=== PATIENT | female | born 1950 | race Caucasian/White ===

== ENCOUNTER 2021-06-07 12:51 | Emergency (ER) | payer MEDICARE, SELFPAY ==
[2021-06-07 12:56] VITALS: BP 166/116; PULSE 119; RESP 18; TEMP 36.4; O2SAT 96; BMI 26.1
[2021-06-07 13:35] VITALS: BP 161/116; PULSE 124; RESP 21; O2SAT 96
--- NOTE | 2021-06-07 13:35 | ECG_ITS ---
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
--- NOTE | 2021-06-07 13:35 | XR_ITS ---
WS: [id number] PORTABLE CHEST HISTORY: Irregular heartbeat. COMPARISON: None available. Mildly hyperinflated lungs. Costophrenic angles are not completely included. No pneumonia. Normal vas culature. No pleural effusion or pneumothorax. Cardiac size: Normal. Mediastinum/Aorta: Normal mediastinum. No osseous abnormality seen. XR/XR chest 1V portable [id number] IMPRESSION: Mild hyperexpansion. No pneumonia.
[2021-06-07 14:06] LABS: Basophils % 0.6 %; Eosinophils # 0.1 10^3/uL (0.0-0.8); Hematocrit 48.5 % (37.0-47.0); Hemoglobin 15.8 g/dL (11.5-15.3); Lymphocytes # 2.2 10^3/uL (0.8-4.8); Lymphocytes % 44.4 %; Mean Corpuscular HGB Conc 32.6 g/dL (30.0-36.0); Mean Corpuscular Hemoglobin 28.4 pg (28.0-34.0); Mean Corpuscular Volume 87.2 fl (81-99); Mean Platelet Volume 8.8 fL (7.4-10.4); Monocytes # 0.5 10^3/uL (0.2-0.9); Monocytes % 9.7 %; Neutrophils # 2.19 10^3/uL (1.8-7.7); Neutrophils % 44.1 %; Nucleated Red Blood Cells % 0 %; Platelet Count 318 10^3/cmm (130-400); Red Blood Count 5.56 10^6/uL (4.1-5.3); Red Cell Distribution Width 12.7 % (12.1-15.1)
[2021-06-07 14:08] VITALS: BP 160/118; PULSE 105; RESP 21; O2SAT 97
--- NOTE | 2021-06-07 14:12 | W.ED.ARRPALP ---
HPI - Arrhythmia/Palpitations General: Chief Complaint: Arrhythmia/Palpitations Stated Complaint: PT States thinks its AFIB Time Seen by Provider: 06/07/21 13:43 Source: patient Mode of arrival: ambulatory History of Present Illness: 71-year-old female presents emergency room complaining of irregular heart rate palpitations lightheadedness and dizziness with any activity for the last week. Patient initially presented to the triage area and was found to be in a flutter with a rate in the 130s. There is a very high volumes today we had to make a room for her once we had and got her to the room she was still in a flutter when initially examined her but shortly after she converted on her own back into a sinus tachycardia. She not having any chest pain she is feeling overall a bit better at this point. She not had any chest discomfort with any of these episodes that have been sustained the last several days. MD complaint: rapid heart beat, heart racing and palpitations Duration: constant Severity: mild Arrhythmia history: atrial fibrillation Associated symptoms: Deny nausea or vomiting Review of Systems Const: Denies: fever(s), chills, body aches, change in appetite, fatigue or malaise ENMT: Denies: throat pain, ear or mastoid pain, nasal discharge or nasal congestion Card: Denies: chest pain, edema, dyspnea on exertion or orthopnea Resp: Denies: dyspnea, productive cough or non-productive cough GI: Denies: abdominal pain, nausea, vomiting, hematemesis, coffee ground emesis, diarrhea, constipation, bloating, hematochezia or melena : Denies: flank pain, difficulty voiding, dysuria, urinary frequency or urinary urgency Skin/Breast: Denies: rash or pruritus PFSH ED PFSH: Surgical History (Updated 06/12/21 @ 12:50 by Juan M Rabago DO) S/P left knee arthroscopy Social History (Updated 06/12/21 @ 12:51 by Juan M Rabago DO) Smoking and tobacco status: never smoked Alcohol intake: never Physical Exam Const: COMMON NORMALS: no acute distress GENERAL APPEARANCE: cooperative and comfortable ORIENTATION/CONSCIOUSNESS: Yes awake, Yes oriented to person, Yes oriented to place and Yes oriented to time HENMT: COMMON NORMALS: normocephalic, atraumatic and hearing grossly normal bilaterally HEAD & SCALP: normocephalic and atraumatic Neck/C-Spine: COMMON NORMALS: no JVD Resp: COMMON NORMALS: normal respiratory effort, No retractions, No use of accessory muscles and clear to auscultation bilaterally AUSCULTATION: clear to auscultation bilaterally Cardio: COMMON NORMALS: no JVD and No murmurs present (Cardio) RATE: tachycardic RHYTHM: abnormal rhythm irregularly irregular GI: COMMON NORMALS: Soft to palpation and No hepatosplenomegaly present AUSCULTATION: Yes normoactive bowel sounds PALPATION: Yes Soft to palpation, No Tenderness to palpation present (GI), No Guarding due to palpation present (GI) and Yes No hepatosplenomegaly present Extremity: COMMON NORMALS: normal to inspection, capillary refill normal, no clubbing, cyanosis or edema, no calf tenderness and no pedal edema Neuro: SENSORIUM/ORIENTATION: Yes oriented to person, Yes oriented to place and Yes oriented to time Skin: COMMON NORMALS: no rashes or lesions noted GENERAL SKIN EXAM: no rashes or lesions noted Course Vital Signs: Vital signs: Vital Signs Temperature 97.5 F L 06/07/21 12:56 Pulse Rate 67 06/07/21 17:28 Respiratory Rate 15 06/07/21 17:28 Blood Pressure 167/111 06/07/21 17:28 Pulse Oximetry 96 06/07/21 17:28 MDM - Arrhythmia/Palpitations Medical Decision Making Patient was given metoprolol and hydralazine blood pressure is improved. We will go ahead and discharge her home on metoprolol called and talked to cardiology on-call. They recommend starting Eliquis. Patient is in a normal sinus rhythm at this time she has had this intermittently it sounds like for some time we will go ahead and discharge home on Toprol and Eliquis have her follow-up with cardiologywithin the next week. Lab Data : 06/07/21 13:56 06/07/21 13:56 Radiology Impressions Chest X-Ray 06/07/21 13:35 IMPRESSION: Mild hyperexpansion. No pneumonia. Laboratory Results WBC 5.0 10^3/uL (4.0-10.0) 06/07/21 13:56 RBC 5.56 10^6/uL (4.1-5.3) H 06/07/21 13:56 Hgb 15.8 g/dL (11.5-15.3) H 06/07/21 13:56 Hct 48.5 % (37.0-47.0) H 06/07/21 13:56 MCV 87.2 fl (81-99) 06/07/21 13:56 MCH 28.4 pg (28.0-34.0) 06/07/21 13:56 MCHC 32.6 g/dL (30.0-36.0) 06/07/21 13:56 RDW 12.7 % (12.1-15.1) 06/07/21 13:56 Plt Count 318 10^3/cmm (130-400) 06/07/21 13:56 MPV 8.8 fL (7.4-10.4) 06/07/21 13:56 Neut % (Auto) 44.1 % 06/07/21 13:56 Lymph % (Auto) 44.4 % 06/07/21 13:56 Merrick % (Auto) 9.7 % 06/07/21 13:56 Eos % (Auto) 1.0 % 06/07/21 13:56 Baso % (Auto) 0.6 % 06/07/21 13:56 Neut # (Auto) 2.19 10^3/uL (1.8-7.7) 06/07/21 13:56 Lymph # (Auto) 2.2 10^3/uL (0.8-4.8) 06/07/21 13:56 Merrick # (Auto) 0.5 10^3/uL (0.2-0.9) 06/07/21 13:56 Eos # (Auto) 0.1 10^3/uL (0.0-0.8) 06/07/21 13:56 Baso # (Auto) 0.0 10^3/uL (0.0-0.1) 06/07/21 13:56 Nucleated RBC % (auto) 0 % 06/07/21 13:56 Nucleated RBCs # 0.0 /100WBC 06/07/21 13:56 Sodium 138 mmol/L (136-145) 06/07/21 13:56 Potassium 4.2 mmol/L (3.5-5.1) 06/07/21 13:56 Chloride 99 mmol/L (98-107) 06/07/21 13:56 Carbon Dioxide 25 mmol/L (22-29) 06/07/21 13:56 Anion Gap 18.2 (5-19) 06/07/21 13:56 BUN 12 mg/dL (8-23) 06/07/21 13:56 Creatinine 0.7 mg/dL (0.5-0.9) 06/07/21 13:56 GFR Calculation 83.0 mL/min (90-130) L 06/07/21 13:56 Glucose 101 mg/dL (65-115) 06/07/21 13:56 Calculated Osmolality 286 mOsm/kg (285-295) 06/07/21 13:56 Calcium 10.6 mg/dL (8.5-10.5) H 06/07/21 13:56 Magnesium 2.4 mg/dL (1.7-2.3) H 06/07/21 13:56 Total Bilirubin 0.4 mg/dL (0.15-1.2) 06/07/21 13:56 AST 16 U/L (0-32) 06/07/21 13:56 ALT 15 U/L (0-33) 06/07/21 13:56 Alkaline Phosphatase 78 IU/L (35-105) 06/07/21 13:56 NT-Pro-B Natriuret Pep 51 pg/mL (0-125) 06/07/21 13:56 Total Protein 8.2 g/dL (6.6-8.7) 06/07/21 13:56 Albumin 5.1 g/dL (3.5-5.2) 06/07/21 13:56 Globulin 3.1 g/dL (1.3-4.6) 06/07/21 13:56 Discharge Plan Discharge Patient Disposition: Home Clinical Impression: Atrial fib/flutter, transient Condition: Stable Prescriptions: New Toprol XL 25 mg tablet extended release 24 hr 25 mg PO DAILY Qty: 30 0RF Eliquis 5 mg tablet 5 mg PO BID Qty: 60 0RF No Action Tylenol Ex Str Rapid Release 500 mg Tablet 500 mg PO BEDTIME PRN (Reason: Pain) 0RF Fiber (calcium polycarbophil) 625 mg Tablet 1,250 mg PO QPM 0RF Colace 100 mg Capsule 100 mg PO QPM 0RF Discharge Orders: Discharge ED (Routine); Ordered 06/07/21 Ordered By: Juan M Rabago Referrals: Hermes Cortes DO [Primary Care Provider] - Discharge Diet: Usual diet Discharge Activity: Limit activity as instructed Patient Instructions: Opioid Safety Activity Restrictions/Additional Instructions: This measures will call to make arrangements for you to have an echocardiogram and follow-up with cardiology. Coding Level of Care Code ED Bakery Demonstrator for Chg Fwd Exam Comprehensive
[2021-06-07] MEDS: metoprolol tartrate 50 mg Tablet PO (14:18)
[2021-06-07 14:39] LABS: Alanine Aminotransferase 15 U/L (0-33); Albumin Level 5.1 g/dL (3.5-5.2); Alkaline Phosphatase 78 IU/L (35-105); Anion Gap 18.2 (5-19); Aspartate Amino Transferase 16 U/L (0-32); Blood Urea Nitrogen 12 mg/dL (8-23); Calcium 10.6 mg/dL (8.5-10.5); Carbon Dioxide 25 mmol/L (22-29); Chloride 99 mmol/L (98-107); Creatinine Clr Calc Pharmacy 68.0748; Globulin 3.1 g/dL (1.3-4.6); Glucose 101 mg/dL (65-115); Magnesium 2.4 mg/dL (1.7-2.3); NT Pro B Type Natriuretic Pept 51 pg/mL (0-125); Osmolality Calculated 286 mOsm/kg (285-295); Potassium 4.2 mmol/L (3.5-5.1); Sodium 138 mmol/L (136-145); Total Bilirubin 0.4 mg/dL (0.15-1.2); Total Protein 8.2 g/dL (6.6-8.7)
[2021-06-07 15:30] VITALS: BP 158/111; PULSE 71; RESP 20; O2SAT 97
[2021-06-07 16:06] VITALS: BP 167/111; PULSE 67; RESP 15; O2SAT 96
[2021-06-07] MEDS: hyDRALAzine 20 mg/mL INJ 1 mL 10 MG IVP (16:22)
[2021-06-07 17:28] VITALS: BP 167/111; PULSE 67; RESP 15; O2SAT 96
--- NOTE | 2021-06-13 13:00 | DCPLANNER ---
Addendum entered by Kimberlee Gonzalez 08/21/21 21:02: Patient had a follow up appointment scheduled for 07.04.21 with [facility] - patient did attend appointment. Patient had a follow up appointment scheduled for 08.09.21 for an echo - patient did attend appointment. Addendum entered by Kimberlee Gonzalez 07/27/21 07:44: Patient has an echo scheduled for July at 11:00. centralized scheduling will call patient with appointment information. Addendum entered by Kimberlee Gonzalez 06/21/21 19:07: account manager relief received conformation that centralized scheduling did receive order for patient. No appointment scheduled at this time. Original Note: account manager relief had message to schedule a follow up appointment for patient with [facility]. account manager relief called [facility], spoke with Sharon, gave clinic patients information. A follow up appointment was scheduled for Sunday, July 04, 2021 at 3:[address] Mtz. account manager relief called phone number [phone], unable to speak with patient at this time, a voicemail was left for patient with appointment information.
== END 2021-06-07 17:20 | disposition home or self-care (01) ==
PROVIDERS: Emergency Medicine; Emergency Provider Family Medicine; PCP Internal Medicine
DX: I48.91 Unspecified atrial fibrillation (principal); I48.92 Unspecified atrial flutter
CPT/HCPCS: 71045; 80053; 83735; 83880; 85025; 93005; 96374; 99284; J0360

== ENCOUNTER → 2021-07-04 14:42 | Outpatient (BNVA) | payer MEDICARE, SELFPAY | PROVIDERS: PCP Internal Medicine; Visit Provider Internal Medicine Cardiovascular Disease | DX: R07.9 Chest pain, unspecified (principal); R06.02 Shortness of breath; R00.2 Palpitations; I10 Essential (primary) hypertension; M19.90 Unspecified osteoarthritis, unspecified site; R06.00 Dyspnea, unspecified | CPT/HCPCS: 99204; 99205 ==

== ENCOUNTER 2021-07-20 06:43 | Outpatient (CLI) | payer MEDICARE, SELFPAY ==
[2021-07-20 07:17] VITALS: BMI 26.6
--- NOTE | 2021-07-20 07:20 | ECG_ITS ---
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 Interpretive Statements NAME OF STUDY: EXERCISE SESTAMIBI STRESS TEST INDICATION: Paroxysmal atrial fibrillation Baseline blood pressure of 165/113 mm Hg, heart rate 88 beats per minute and oxygen saturation of 98%. EKG showed normal sinus rhythm, normal axis with isolated PVC with poor anterior R wave progression. Nonspecific ST depression. The patient exercised for 5 minutes 35 seconds on a standard Tye protocol. Patient attained a maximum heart rate of 166 beats per minute(109% of the maximum predicted heart rate) with a blood pressure during exercise increased to 174/124 at the peak exercise of 150/111 mm Hg and oxygen saturation 98%. The EKG at peak exercise revealed sinus tachycardia with no significant ST-T wave changes. Patient did not have any chest pain or any significant arrhythmis with the exercise. The study was terminated due to maximal fatigue. During the recovery phase, there were no new changes. Isolated PVCs noted in recovery. Blood pressure increased to 177/118 early in recovery and at the end of the recovery phase was 164/107 mm Hg with a heart rate of 102 beats per minute and oxygen saturation of 97%. CONCLUSION: 1. Normal EKG response to treadmill exercise. 2. No exercise-induced chest pain or cardiac arrhythmia. 3. Good exercise tolerance, attained a maximum of 7 METs. Maximum VO2 of 24.5 mL/kg/min. 4. Baseline hypertension with normal response to exercise. 5. Perfusion scan will be documented separately. Electronically Signed On 07-21-2021 13:23:12 CDT by Mariama Mtz M.D. [id number]
--- NOTE | 2021-07-20 07:20 | NMCV_ITS ---
NM diego perf SPECT r/s* [id number] Lily Díaz Age: 71 Gender: F : 1950 Exam Date: 07/20/2021 07:20 Ordering Phys: Hermes Cortes DO Technologist: KRISTIAN Mcbride Exam Location: [facility] Indications: PAROXYSMAL ARTERIAL FIBRILLATION STRESS TEST Please see separate stress test report in [facility] for full findings IMAGE PROTOCOL Rest/Stress 1 Exercise Day Radiopharmaceutical Dose (mCi) Administration Site Administered by Rest: Tc-99m 10.9 IV KRISTIAN Gaines Sestamibi Stress:Tc-99m 32.6 IV KRISTIAN Gaines Sestamibi Rest: 20-Jul-2021 60 Discovery 630 Stress: 20-Jul-2021 15 Discovery 630 Radiopharmaceutical was injected at 100 % maximum heart rate. Images obtained in supine and prone position. SPECT RESULTS Technical Quality: Excellent Raw Data Analysis: Normal Image Corrections: No attenuation or motion correction applied Summed Stress Score: 0 Summed Rest Score: 0 Summed Difference Score: 0 PERFUSION FINDINGS SPECT images demonstrate homogeneous tracer distribution throughout the myocardium. FUNCTIONAL RESULTS (calculated via Gated SPECT) Stress Image LV EF (%): 85 Stress EDV (mL):48 TID: 0.67 Stress ESV (mL):7 FUNCTIONAL FINDINGS: The left ventricle is normal in size. Transient Ischemia Dilatation of 0.67. There is normal left ventricular systolic function. The left ventricular ejection fraction is normal with a value of 85%. There is hyperdynamic left ventricular wall thickening with no regional wall motion abnormality. IMPRESSIONS 1. Myocardial perfusion imaging is normal. 2. Overall left ventricular systolic function is normal without regional wall motion abnormalities, LVEF=85%. 3. Patient exercised for 5 minutes 35 seconds and reached 7 METs. Normal EKG response to exercise. Refer to separate report for details. 4. Scan indicates low risk for cardiac events. Mariama Mtz MD (Electronically Signed) Final Date: 21 July 2021 13:24 S
[2021-07-20 09:09] VITALS: BP 164/107; PULSE 99
== END 2021-07-20 06:44 | disposition home or self-care (01) ==
LOC: CDL 06:44
PROVIDERS: PCP Internal Medicine; Visit Provider Internal Medicine
DX: I48.0 Paroxysmal atrial fibrillation (principal); I10 Essential (primary) hypertension
CPT/HCPCS: 78452; 93017; A9500

== ENCOUNTER 2021-08-09 10:45 | Outpatient (CLI) | payer MEDICARE, SELFPAY ==
--- NOTE | 2021-08-09 11:00 | USCV_ITS ---
Lily Díaz Age: 71 Gender: F : 1950 Exam Date: 08/09/2021 11:09 Ordering Phys: Mariama Mtz MD ([email or web address]) Technologist: [place] [facility] [place]: Atrial fibrillation BP: 126 / 88 HR: 70 Rhythm: Sinus Technical Quality: Good MEASUREMENTS (Male / Female) Normal Values 2D ECHO LV Diastolic Diameter PLAX 3.4 cm 4.2 - 5.9 / 3.9 - 5.3 cm LV Systolic Diameter PLAX 2.3 cm IVS Diastolic Thickness 1.1 cm 0.6 - 1.0 / 0.6 - 0.9 cm IVS Systolic Thickness 1.6 cm LVPW Diastolic Thickness 0.8 cm 0.6 - 1.0 / 0.6 - 0.9 cm LVPW Systolic Thickness 1.3 cm LVOT Diameter 2.0 cm LV Ejection Fraction 2D Teich 60.5 % LV Ejection Fraction MOD 2C 77.0 % LV Ejection Fraction 2C AL 78.5 % LA Diameter 3.1 cm Aorta at Sinotubular Diameter 2.5 cm M-MODE Aortic Annulus Diameter 3.2 cm LA Ao Ratio MM 1.0 MV E Point Septal Separation 0.9 cm DOPPLER AV Peak Velocity 129.0 cm/s LVOT Peak Velocity 99.0 cm/s AV Area Cont Eq vti 2.4 cm squared AV Area Cont Eq pk 2.4 cm squared MV Area PHT 5.0 cm squared Mitral E to A Ratio 1.3 MV E' Velocity 49.0 cm/s Mitral E to MV E' Ratio 7.8 Mitral E to LV E' Lateral Ratio 6.5 Mitral E to LV E' Septal Ratio 10.0 TR Peak Velocity 225.3 cm/s TR Peak Gradient 20.3 mmHg TV Peak E Velocity 108.0 cm/s Right Atrial Pressure 3.0 mmHg Pulmonary Artery Systolic Pressu 23.3 mmHg PV Peak Velocity 126.0 cm/s FINDINGS Left Ventricle Normal left ventricular size, systolic function and wall thickness, with no regional wall motion abnormalities. Left ventricular ejection fraction is estimated at 70 %. Normal diastolic function. Right Ventricle Normal right ventricular size and systolic function. RVSP could not be calculated due to incomplete tricuspid regurgitation velocity profile. Right Atrium Normal right atrial size. Left Atrium Normal left atrial size. Mitral Valve Structurally normal mitral valve. No mitral valve stenosis. Mild mitral valve regurgitation. Aortic Valve Structurally normal trileaflet aortic valve. No aortic valve stenosis. No aortic valve regurgitation. Tricuspid Valve Structurally normal tricuspid valve. No tricuspid valve stenosis. Trace to mild tricuspid valve regurgitation. Pulmonic Valve Structurally normal pulmonic valve. No pulmonary valve stenosis. Trace pulmonary valve regurgitation. Pericardium No pericardial effusion. Aorta Normal size aortic root and proximal ascending aorta. CONCLUSIONS 1. Normal left ventricular size, systolic function and wall thickness, with no regional wall motion abnormalities. Left ventricular ejection fraction is estimated at 70 %. Normal diastolic function. 2. Mild mitral valve regurgitation. 3. Trace to mild tricuspid valve regurgitation. 4. No prior similar studies to compare. Mariama Mtz MD (Electronically Signed) Final Date: 12 August 2021 17:54 S
== END 2021-08-09 10:46 | disposition home or self-care (01) ==
PROVIDERS: PCP Internal Medicine; Visit Provider Internal Medicine Cardiovascular Disease
DX: R06.02 Shortness of breath (principal); I48.91 Unspecified atrial fibrillation; I08.1 Rheumatic disorders of both mitral and tricuspid valves
CPT/HCPCS: 93306

== ENCOUNTER → 2021-10-10 13:49 | Outpatient (BNVA) | payer MEDICARE, SELFPAY | PROVIDERS: PCP Internal Medicine; Visit Provider Internal Medicine Cardiovascular Disease | DX: R07.9 Chest pain, unspecified (principal); R06.00 Dyspnea, unspecified; I10 Essential (primary) hypertension; M19.90 Unspecified osteoarthritis, unspecified site | CPT/HCPCS: 99213; 99214 ==

== ENCOUNTER 2022-04-16 12:36 | Outpatient (CLI) | payer MEDICARE, SELFPAY ==
--- NOTE | 2022-04-16 12:44 | MR_ITS ---
WS: [id number] MRI LUMBAR SPINE NONCONTRAST TECHNIQUE: Sagittal T1, T2 and STIR imaging. Axial T1 and T2 imaging. CLINICAL INFORMATION: LEFT LEG WEAKNESS COMPARISON: None. FINDINGS: Mild lumbar curve. No acute compression. Slight anterolisthesis L4 on L5 measuring 5 mm. No acute com pression fractures. Slightly aneurysmal infrarenal abdominal aorta measuring 2.0 x 2.3 cm AP by trans verse. Adrenal glands appear normal. Tiny bilateral renal cysts. Small disc protrusions in the lower cervical spine at C5-C6 and C6-C7 and T3-T4. Slight indentation on the thoracic cord at T3-T4 with mi ld central canal stenosis. This can be further evaluated with dedicated thoracic spine MRI. L1-L2: Mild annular bulging. Mild facet arthropathy. Spinal canal and foramen are patent. L2-L3: Mild annular bulging with slight impingement on the LEFT subarticular recess and traversing LE FT L3 nerve root. Mild LEFT foraminal narrowing. Mild facet arthropathy. L3-L4: Mild annular bulging with moderate central canal stenosis. Impingement on traversing L4 nerve roots bilaterally LEFT greater than RIGHT. Moderate facet arthropathy. LEFT foraminal protrusion with mild LEFT greater than RIGHT foraminal narrowing. Moderate facet arthropathy. L4-L5: Grade 1 anterolisthesis. Moderate to severe central canal stenosis with impingement traversing L5 nerve roots bilaterally. Mild RIGHT foraminal narrowing. Moderate facet arthropathy ligamentum fl avum hypertrophy. L5-S1: Mild disc bulging with slight impingement on the LEFT traversing S1 nerve root. Mild LEFT L5-S 1 foraminal narrowing. Moderate facet arthropathy. Visualized pelvic bony structures: Normal. Paravertebral soft tissues: Normal. MR/MR lumbar spine wo con* [id number] IMPRESSION: 1. Grade 1 anterolisthesis L4 on L5 with moderate to severe central canal sten osis. Impingement traversing L5 nerve roots bilaterally. Moderate to advanced f acet arthropathy with ligamentum flavum hypertrophy. 2. Moderate central canal stenosis L3-L4. 3. Small LEFT foraminal protrusion L3-L4 slightly impinges the exiting LEFT L3 nerve root. 4. RIGHT eccentric disc bulging L4-L5 slightly contacts the exiting RIGHT L4 n erve root. 5. Disc bulging L5-S1 slightly impinges the traversing LEFT S1 nerve root. 6. Mild LEFT L5-S1 foraminal narrowing. 7. Small disc protrusions in the lower cervical spine at C5-C6 and C6-C7 and T 3-T4. Slight indentation on the thoracic cord at T3-T4 with mild central canal stenosis. This can be further evaluated with dedicated thoracic spine MRI.
== END 2022-04-16 12:37 | disposition home or self-care (01) ==
LOC: RAD 12:36
PROVIDERS: PCP Internal Medicine; Visit Provider Internal Medicine
DX: R29.898 Other symptoms and signs involving the musculoskeletal system (principal); M48.061 Spinal stenosis, lumbar region without neurogenic claudication; M51.26 Other intervertebral disc displacement, lumbar region; M50.222 Other cervical disc displacement at C5-C6 level; M51.24 Other intervertebral disc displacement, thoracic region
CPT/HCPCS: 72148

== ENCOUNTER → 2022-05-02 13:02 | Outpatient (BNVA) | payer MEDICARE, SELFPAY | PROVIDERS: PCP Internal Medicine; Referring Provider Internal Medicine; Visit Provider Orthopaedic Surgery | DX: M43.16 Spondylolisthesis, lumbar region (principal) | CPT/HCPCS: 99204 ==

== ENCOUNTER → 2022-06-13 09:48 | Outpatient (BNVA) | payer MEDICARE, SELFPAY | PROVIDERS: PCP Internal Medicine; Visit Provider Orthopaedic Surgery | DX: M43.16 Spondylolisthesis, lumbar region (principal) | CPT/HCPCS: 99214 ==

== ENCOUNTER → 2022-06-25 08:53 | Outpatient (BNVA) | payer MEDICARE, SELFPAY | PROVIDERS: PCP Internal Medicine; Visit Provider Anesthesiology Pain Medicine | DX: M43.16 Spondylolisthesis, lumbar region (principal); M51.16 Intervertebral disc disorders with radiculopathy, lumbar region; M79.604 Pain in right leg; M79.605 Pain in left leg | CPT/HCPCS: 99204 ==

== ENCOUNTER → 2022-07-17 13:52 | Outpatient (BNVA) | payer MEDICARE, SELFPAY | PROVIDERS: PCP Internal Medicine; Visit Provider Anesthesiology Pain Medicine | DX: M54.16 Radiculopathy, lumbar region (principal) | CPT/HCPCS: 64483; 64484; J1100; J3490 ==

== ENCOUNTER → 2022-07-29 09:57 | Outpatient (BNVA) | payer MEDICARE, SELFPAY | PROVIDERS: PCP Internal Medicine; Visit Provider Anesthesiology Pain Medicine | DX: M43.16 Spondylolisthesis, lumbar region (principal); M51.16 Intervertebral disc disorders with radiculopathy, lumbar region | CPT/HCPCS: 99213 ==

== ENCOUNTER → 2022-08-08 09:54 | Outpatient (BNVA) | payer MEDICARE, SELFPAY | PROVIDERS: PCP Internal Medicine; Visit Provider Orthopaedic Surgery | DX: M54.9 Dorsalgia, unspecified (principal) | CPT/HCPCS: 99213 ==

== ENCOUNTER → 2022-10-09 13:18 | Outpatient (BNVA) | payer MEDICARE, SELFPAY | PROVIDERS: PCP Internal Medicine; Visit Provider Internal Medicine Cardiovascular Disease | DX: R07.9 Chest pain, unspecified (principal); R06.00 Dyspnea, unspecified; I10 Essential (primary) hypertension; Z79.82 Long term (current) use of aspirin | CPT/HCPCS: 99214 ==

== ENCOUNTER → 2022-11-04 09:14 | Outpatient (BNVA) | payer MEDICARE, SELFPAY | PROVIDERS: PCP Internal Medicine; Visit Provider Anesthesiology Pain Medicine | DX: M43.16 Spondylolisthesis, lumbar region (principal); M51.16 Intervertebral disc disorders with radiculopathy, lumbar region | CPT/HCPCS: 99213; 99214 ==

== ENCOUNTER → 2023-03-06 09:49 | Outpatient (BNVA) | payer MEDICARE, SELFPAY | PROVIDERS: PCP Internal Medicine; Visit Provider Anesthesiology Pain Medicine | DX: M54.12 Radiculopathy, cervical region (principal); M51.16 Intervertebral disc disorders with radiculopathy, lumbar region; M43.16 Spondylolisthesis, lumbar region | CPT/HCPCS: 72040; 99214 ==

== ENCOUNTER → 2023-03-12 13:47 | Outpatient (BNVA) | payer MEDICARE, SELFPAY | PROVIDERS: PCP Internal Medicine; Visit Provider Anesthesiology Pain Medicine | DX: M54.16 Radiculopathy, lumbar region (principal) | CPT/HCPCS: 64483; 64484; J1100; J3490 ==

== ENCOUNTER → 2023-03-26 12:47 | Outpatient (BNVA) | payer MEDICARE, SELFPAY | PROVIDERS: PCP Internal Medicine; Visit Provider Anesthesiology Pain Medicine | DX: M17.12 Unilateral primary osteoarthritis, left knee (principal); M43.16 Spondylolisthesis, lumbar region; M51.16 Intervertebral disc disorders with radiculopathy, lumbar region; M51.26 Other intervertebral disc displacement, lumbar region; M48.061 Spinal stenosis, lumbar region without neurogenic claudication | CPT/HCPCS: 20610; 99214; J1030; J3490 ==

== ENCOUNTER 2023-10-01 14:43 | Outpatient (CLI) | payer MEDICARE, SELFPAY ==
--- NOTE | 2023-10-01 14:51 | MR_ITS ---
WS: [id number] MRI RIGHT KNEE NONCONTRAST TECHNIQUE: Axial PD, coronal PD fat sat, coronal PD, sagittal PD, and sagittal PD fat-sat images obta ined. CLINICAL INFORMATION: R KNEE EFFUSION COMPARISON: None. FINDINGS: Distal quadriceps and patella tendons are intact. Moderate suprapatellar effusion. ACL and PCL are in tact. Moderate to advanced tricompartment arthritis worse in the medial joint compartment. Hypertroph ic patella. Advanced chondromalacia patella worse involving the medial patella facet. Medial and late ral patellar retinaculum appear intact. Normal lateral collateral ligament. Medial collateral ligamen t appears intact. Peripheral extrusion of the medial and lateral meniscus worse involving the medial meniscus with chronic thinning. Chronic appearing tears of the medial and lateral meniscus worse invo lving the anterior horn lateral meniscus and posterior horn medial meniscus. Chronic intrasubstance s ignal abnormality. Parameniscal cyst along the anterior horn lateral meniscus measuring 1.6 x 1.0 x 2 .1 cm. Smaller adjacent satellite cyst. Grade IV chondromalacia medial joint compartment. Edema within the medial femoral condyle and tibial plateau. MR/MR knee RT wo con* [id number] IMPRESSION: 1. Moderate lobulated suprapatellar effusion. 2. Advanced chondromalacia patella worse in the medial patella facet 3. Advanced tricompartmental arthritis. Grade IV chondromalacia medial joint c ompartment with subchondral edema in the femoral condyle and tibial plateau. 4. Chronic tears of the medial and lateral meniscus described above with chron ic thinning. Parameniscal cyst along the anterior horn lateral meniscus describ ed above. 5. ACL and PCL appear intact. Medial and lateral collateral ligaments appear i ntact. Outbridge grading: grade IV: full-thickness cartilage loss with underlying bone reactive changes
== END 2023-10-01 14:44 | disposition home or self-care (01) ==
LOC: RAD 14:44
PROVIDERS: PCP Internal Medicine; Visit Provider Internal Medicine
DX: M25.461 Effusion, right knee (principal); M17.11 Unilateral primary osteoarthritis, right knee; M94.261 Chondromalacia, right knee; S83.281A Other tear of lateral meniscus, current injury, right knee, initial encounter; S83.241A Other tear of medial meniscus, current injury, right knee, initial encounter
CPT/HCPCS: 73721

== ENCOUNTER → 2023-10-16 10:30 | Outpatient (BNVA) | payer MEDICARE, SELFPAY | PROVIDERS: PCP Internal Medicine; Referring Provider Internal Medicine; Visit Provider Student in an Organized Health Care Education/Training Program | DX: Z01.818 Encounter for other preprocedural examination (principal); M17.11 Unilateral primary osteoarthritis, right knee | CPT/HCPCS: 99204 ==

== ENCOUNTER 2023-10-29 14:37 | Outpatient (CLI) | payer MEDICARE, SELFPAY ==
[2023-10-29 14:55] LABS: Basophils % 0.6 %; Eosinophils # 0.1 10^3/uL (0.0-0.8); Eosinophils % 2.6 %; Hematocrit 39.1 % (36-47); Lymphocytes # 2.4 10^3/uL (0.8-4.8); Lymphocytes % 44.4 %; Mean Corpuscular HGB Conc 33.2 g/dL (30-55); Mean Corpuscular Hemoglobin 29.8 pg (27-33); Mean Corpuscular Volume 89.7 fl (85-98); Mean Platelet Volume 8.9 fL (7.4-10.4); Monocytes # 0.3 10^3/uL (0.2-0.9); Monocytes % 6.2 %; Neutrophils # 2.47 10^3/uL (1.8-7.7); Neutrophils % 46.2 %; Nucleated Red Blood Cells % 0 %; Platelet Count 256 10^3/cmm (157-399); Red Blood Count 4.36 10^6/uL (3.85-5.65); Red Cell Distribution Width 13.1 % (12.1-15.1); White Blood Count 5.34 10^3/uL (3.29-11.43)
[2023-10-29 15:03] LABS: Add Urine Microscopic? YES; Bilirubin Urine Neg (Negative); Blood Urine Neg (Negative); Glucose Urine UA Norm (Normal); Ketones Urine Negative (Negative); Leukocyte Esterase Urine 1+ (Negative); Nitrate Urine Negative (Negative); Protein Urine Neg (Negative); Specific Gravity, Urine 1.015 (1.005-1.030); Urine Appearance Clear (CLEAR); Urine Color Yellow (Yellow); Urobilinogen Urine Norm (Negative); WBC Urine RARE /hpf (0-5); pH Urine 7 (5-7)
[2023-10-29 15:11] LABS: Alanine Aminotransferase 13 U/L (0-33); Albumin Level 3.9 g/dL (3.5-5.2); Alkaline Phosphatase 63 U/L (35-105); Anion Gap 13.1 (5-19); Aspartate Amino Transferase 16 U/L (0-32); Blood Urea Nitrogen 15 mg/dL (8-23); Calcium 8.6 mg/dL (8.5-10.5); Carbon Dioxide 27 mmol/L (22-29); Chloride 103 mmol/L (98-107); Globulin 2.6 g/dL (1.3-4.6); Glucose 208 mg/dL (65-115); Osmolality Calculated 295 mOsm/kg (285-295); Potassium 4.1 mmol/L (3.5-5.1); Sodium 139 mmol/L (136-145); Total Bilirubin 0.3 mg/dL (0.15-1.2); Total Protein 6.5 g/dL (6.6-8.7)
== END 2023-10-29 14:38 | disposition home or self-care (01) ==
LOC: LAB 14:38
PROVIDERS: PCP Internal Medicine; Visit Provider Student in an Organized Health Care Education/Training Program
DX: Z01.818 Encounter for other preprocedural examination (principal)
CPT/HCPCS: 36415; 80053; 81001; 85025

== ENCOUNTER 2023-11-17 17:50 | Observation (INO) | payer MEDICARE, SELFPAY ==
[2023-11-17] VITALS (12 sets, daily range): BP systolic 92–177; BP diastolic 56–82; PULSE 72–92; RESP 16–18; TEMP 36.3–36.9; O2SAT 95–98; BMI 28.5
--- NOTE | 2023-11-17 14:29 | W.PM.OPSFHP ---
Same Day Surgery H&P Indication for Procedure/HPI DATE OF PROCEDURE: November 17, 2023 CHIEF COMPLAINT/INDICATIONFOR SURGICAL PROCEDURE: Right knee DJD PREOP DIAGNOSIS: Right Knee DJD PLANNED PROCEDURE: Operation Date: 11/17/23 15:50 Proposed Procedures p Shanique Robot Total Knee Arthroplasty(Right) - Julio Tang DO Medications/Allergies* Home Medications Medication Instructions Recorded Confirmed Type acetaminophen 500 mg tablet 500 mg PO BEDTIME PRN Pain 06/07/21 11/14/23 History Allergies/Adverse Reactions Allergy/AdvReac Type Severity Reaction Status Date / Time No Known Allergies Allergy Verified 11/07/23 10:36 Pertinent History/Comorbid Conditions* Medical History (Updated 10/31/23 @ 15:15 by Julio Tang DO) Arthritis HTN (hypertension) Surgical History (Updated 07/04/21 @ 15:11 by Mariama Mtz MD) S/P hemorrhoidectomy S/P left knee arthroscopy Family History (Updated 07/04/21 @ 14:55 by Jia Sawyer RN) Diabetes Son Aortic aneurysm Father Mitral valve stenosis Mother S/P CABG (coronary artery bypass graft) Father Second degree heart block Mother Lung disease Grandfather Hypertension Father Stroke Mother Grandmother Social History Smoking and tobacco/nicotine status: never used tobacco/nicotine Second hand smoke exposure: No Alcohol intake: current Alcohol intake frequency: few times a week Alcohol type: wine Substance/Drug Use: never Pertinent Exam Findings alert, oriented x 3, operative site marked and procedure specific exam findings Please refer to detailed Ortho exam on 10/15/2023: right knee examination There are no gross deformities of the hips or ankles. no pain to Right hip or pain with ROM, right knee mild effusion . There is tenderness to palpation primarily over the medial compartment of the right knee. Crepitance is felt with range of motion. There is patellafemoral crepitance as well. TTP over retropatellar space, There is a negative lachmans test and both knees are stable to varus and valgus stress testing. There is a varus alignment grossly of 10 degrees. correctable on examination Recommendations Surgery/Procedure today Other Plans: Plan to proceed to OR for R TKA shanique guidance. Pt understands risks benefits complication and alternatives to surgery and elects to proceed with surgical intervention. All questions answered at this time. Pt verified injection from primary was back in end of june/early july and was confirmed of being over 90 days out from last injection. We will proceed with surgical intervention today. Coding Level of Care Code Acute Code for Naheed Garcia
[2023-11-17] MEDS: acetaminophen 1,000 MG/100 ML PIGGYBACK 400 MG IV (14:47)
[2023-11-17] MEDS: scopolamine 1.5 Patch 1 PATCH TRANSDERMA (14:47)
[2023-11-17] MEDS: lactated ringers 500 ML IV (14:48)
[2023-11-17] MEDS: ketorolac 30 mg/mL INJ IVP (14:51)
[2023-11-17] MEDS: sodium chloride 0.9% 1,000 ML 30 ML IV (14:58)
[2023-11-17 15:03] LABS: Basophils % 0.4 %; Eosinophils # 0.1 10^3/uL (0.0-0.8); Eosinophils % 1.3 %; Hematocrit 41.4 % (36-47); Lymphocytes # 2.9 10^3/uL (0.8-4.8); Lymphocytes % 42.7 %; Mean Corpuscular HGB Conc 32.6 g/dL (30-55); Mean Corpuscular Hemoglobin 28.8 pg (27-33); Mean Corpuscular Volume 88.3 fl (85-98); Mean Platelet Volume 8.8 fL (7.4-10.4); Monocytes # 0.5 10^3/uL (0.2-0.9); Monocytes % 6.9 %; Neutrophils # 3.24 10^3/uL (1.8-7.7); Neutrophils % 48.6 %; Nucleated Red Blood Cells % 0 %; Platelet Count 297 10^3/cmm (157-399); Red Blood Count 4.69 10^6/uL (3.85-5.65); Red Cell Distribution Width 13.2 % (12.1-15.1); White Blood Count 6.68 10^3/uL (3.29-11.43)
[2023-11-17] MEDS: ceFAZolin 2,000 MG in sodium chloride 0.9% (plus) 50 ML 100 MG IV ×2 (15:13→22:29)
--- NOTE | 2023-11-17 15:15 | ANES.PREANE2 ---
Pre-Anesthetic Assessment Height/Weight: Height 1.68 m Weight 80.286 kg Temp Pulse Resp BP Pulse Ox O2 Del Method 98.4 F 72 18 177/82 98 Room Air 11/17/23 15:09 11/17/23 15:09 11/17/23 15:09 11/17/23 15:09 11/17/23 15:09 11/17/23 15:09 Preop Diagnosis: Right Knee DJD Operation Date: 11/17/23 15:50 Proposed Procedures p Francisco Robot Total Knee Arthroplasty(Right) - Julio Tang DO Familial anesthetic complications: None Was Beta Tessy taken within 24 hours: N/A Was Clonidine taken within 24 hours: N/A Last intake: Intake Last Liquid Date 11/17/23 Last Liquid Time 10:00 Last Solid Date 11/16/23 Last Solid Time 20:30 Social No alcohol and No tobacco Exam alert, oriented x 3, clear to auscultation bilaterally and regular rate & rhythm Airway Mallampati: Class I Dentition: full Pulmonary Exertional Dyspnea CV/HEM Atrial Fibrillation and Hypertension Anesthetic Plan ASA status: 3 Anesthesia: Regional (specify below) Risk of > 500 ml blood loss (7ml/kg in children): No Medications/Allergies Home Medications Medication Instructions Recorded Confirmed Last Taken Type acetaminophen 500 mg tablet 500 mg PO BEDTIME PRN Pain 06/07/21 11/14/23 11/16/23 History aspirin 81 mg tablet,delayed 81 mg PO DAILY #90 tabs 07/04/21 11/14/23 11/09/23 Rx release (Adult Low Dose Aspirin) metoprolol succinate 50 mg 50 mg PO DAILY #90 tabs 04/24/23 11/14/23 11/16/23 Rx tablet,extended release 24 hr Allergies Allergy/AdvReac Type Severity Reaction Status Date / Time No Known Allergies Allergy Verified 11/07/23 10:36 Current Medications Generic Name Dose Route Start Last Admin Trade Name Freq PRN Reason Stop Dose Admin Lactated Ringer's 500 mls @ 500 mls/hr 11/17/23 14:17 11/17/23 14:48 Lactated Ringers IV 11/17/23 15:16 500 mls/hr .Q1H ONE Administration PFSH Anesthesia Medical History Arthritis HTN (hypertension) Surgical History S/P hemorrhoidectomy S/P left knee arthroscopy Family History Father Hypertension Aortic aneurysm S/P CABG (coronary artery bypass graft) Mother Mitral valve stenosis Second degree heart block Stroke Grandmother Stroke Grandfather Lung disease Son Diabetes Social History Smoking and tobacco/nicotine status: never used tobacco/nicotine Second hand smoke exposure: No Alcohol intake: current Alcohol intake frequency: few times a week Alcohol type: wine Substance/Drug Use: never Data Anesthesia 11/17/23 14:49 11/17/23 14:49 Short CBC 11/17/23 Range/Units 14:49 WBC 6.68 (3.29-11.43) 10^3/uL Hgb 13.50 (11.27-16.99) g/dL Hct 41.4 (36-47) % MCV 88.3 (85-98) fl Plt Count 297 (157-399) 10^3/cmm Neut % (Auto) 48.6 % Neut # (Auto) 3.24 (1.8-7.7) 10^3/uL Cardiac Studies: Echocardiogram 08/09/21 Sestamibi Stress Test (Cardiology) 07/20/21
--- NOTE | 2023-11-17 15:16 | ANES.PROC ---
Anesthesia Procedures Procedure/Date: 11/17/23 Nerve Block ^: Nerve Block 1: Main Anesthesia: general anesthesia Time Out Performed: Yes Consent: requested by attending/covering physician, from patient, from other, risks and benefits reviewed and patient agrees to proceed Nerve block location: adductor canal (R) Anesthesia monitors applied: pulse oximetry, EKG, BP cuff and oxygen Nerve block position: supine Anesthetic Used: ropivicaine 0.5% (30 ml) and with decadron (4 mg) Ultrasound used to: recognize landmarks and visualize and ID femerol nerve Nerve Stimulator Used?: No Interscalene/Femoral BLK: 4 stimuplex 21 g needle used for position and inplane approach, visualize local anesthetic spread and no vascular puncture identified Injection: neg aspiration of heme Patient Tolerated Procedure: well and no complications Complications: none
[2023-11-17 15:26] LABS: Blood Urea Nitrogen 11 mg/dL (8-23); Calcium 9.3 mg/dL (8.5-10.5); Carbon Dioxide 26 mmol/L (22-29); Chloride 104 mmol/L (98-107); Creatinine Clr Calc Pharmacy 68.9284; Glucose 102 mg/dL (65-115); Osmolality Calculated 294 mOsm/kg (285-295); Sodium 142 mmol/L (136-145)
--- NOTE | 2023-11-17 15:33 | XRR_ITS ---
PROCEDURE INFORMATION: Exam: XR Right Knee Exam date and time: 11/17/2023 5:55 PM Age: 73 years old Clinical indication: Device placement; Joint replacement hardware; Prior surgery; Surgery date: Post-operative (0-2 days); Surgery type: Post op RT knee; Additional info: S/P R tka TECHNIQUE: Imaging protocol: Radiologic exam of the right knee. Views: 1 or 2 views. COMPARISON: CT knee RT [facility] [id number] 11/05/2023 8:50 AM FINDINGS: Bones/joints: Postoperative radiographs status post total right knee arthroplasty with components in expected position. Soft tissues: Postoperative edema and air. XR/XR knee RT 1-2V [id number] IMPRESSION: 1. Postoperative radiographs status post total right knee arthroplasty with components in expected position.
[2023-11-17] MEDS: tranexamic acid 1,000 mg/10mL SDV 1000 MG IV (16:00)
[2023-11-17 16:07] LABS: Anion Gap 16.6 (5-19); Potassium 4.6 mmol/L (3.5-5.1)
[2023-11-17] MEDS: ketorolac 30 mg/mL INJ XX (16:25)
[2023-11-17] MEDS: ROPivacaine 0.2% Premix 100 mL 200 MG INTRA-ARTI (16:25)
[2023-11-17] MEDS: tranexamic acid 1,000 mg/10mL SDV 1000 MG XX (16:25)
[2023-11-17] MEDS: EPINEPHrine 1 mg/mL INJ XX (16:25)
[2023-11-17] MEDS: vancomycin 1,000 MG SDV 1000 MG XX (17:09)
--- NOTE | 2023-11-17 17:27 | P.OP_ITS ---
Operative Report Date of procedure: November 17, 2023 Surgeon: Julio Tang DO Procedure: Preoperative diagnosis: Right knee degenerative joint disease Post-op diagnosis: Same Procedure done: Right total knee arthroplasty, cemented?robotic assisted Francisco Implants: Piqua triathlon size 5 femur CR cemented?Right Piqua triathlon size? 4 tibia universal baseplate cemented Piqua triathlon symmetric patella size 31 mm Joel triathlon polyethylene 11mm Surgeon: Julio Tang DO Estimated blood?loss: 25 mL Tourniquet 53mins IV fluids: 1400 mL Urine output: 600 mL Complications: None Condition: stable Disposition: floor Brief History: Patient is a 73-year-old female with with chronic?Right knee degenerative joint disease.? Patient has been worked up in the outpatient setting in the orthopedic office at this point time through shared decision making given? [id number] arthritis as well as failed conservative treatment, and pt would?like to proceed with a?Right total knee arthroplasty.? Through shared decision making elected to proceed with surgical intervention for?Right total knee arthroplasty.? We talked about continued conservative treatment and surgical intervention as far as the risk benefits complications alternatives surgical and nonsurgical treatment options.? At this point time understanding patient risks with surgery he agrees to proceed with surgical intervention.? Once again? risk with surgery include but are not?limited to make it better make it worse blood clot, heart attack, stroke, on the table, infection, injury to nerves or vessels, persistent pain, arthrofibrosis, implant failure.? Understanding these risks patient agrees to proceed with surgical intervention consent was obtained in the office.? All questions answered. Procedure: Patient was seen and evaluated in the preoperative holding area.? Consent was reviewed and signed with patient with plan for?Right total knee arthroplasty.? All questions answered.? Correct extremity marked.? Patient seen and evaluated by the anesthesia department and once cleared for surgery was taken back to the operative suite.? Patient was placed into a supine position on the OR table.? All bony prominences were well-padded.? Patient was appropriately secured to the bed.? Patient underwent anesthesia per the anesthesia department.? Patient received spinal anesthesia and? Arciniega catheter was placed.? A nonsterile tourniquet was applied to the?Right thigh.? At this point in time a final timeout performed.? Patient received appropriate preoperative antibiotics and TXA. Next the?Right?lower extremity was then prepped and draped in standard orthopedic fashion. Esmarch tourniquet was used exsanguinate the?Right?lower extremity.? Tourniquet was insufflated to 250 mmHg. A standard anterior incision was made over midline of the knee.? Sharp scalpel excision through skin and subcutaneous tissue full-thickness skin flaps were made.? Fascia was elevated off of the extensor retinaculum was stable with medial parapatellar arthrotomy was then made.? The performed standard sequential releases..? Immediately on entry into the joint patient was found to have severe eburnated bone and tricompartmental arthritic changes noted.? With significant osteophyte formation.? Next the the patella was then stuffed and the knee was then flexed.?? Rose was placed superiorly around the anterior aspect of the femur this was freed of synovium and I subsequently then placed by 2 femur pins to establish my femur arrays for the Francisco robot.? These were then placed bicortically and? femur array was then appropriately secured with appropriate visualization.? Next attention was turned towards the tibial rays.? These were then drilled sequentially bicortically in parallel fashion and intraincisional.? I then pl aced my guide as well as my tibial array on in place.? This was appropriately secured and had excellent visualization with the Francisco robot.? Next the tibial checkpoint as well as femur checkpoint were then placed.? At this point time I then subsequently established my head center as well as my medial?lateral malleoli as well as my checkpoints.? Next utilizing standard Y[place]olis technology I then mapped out the appropriate points and confirmation points around the femur as well as the tibia in standard fashion.? Once this was then done I then removed all osteophytes in preparation for dynamic testing.? All osteophytes were removed as well as I removed the ACL and the PCL was excised due to its significant tearing and degeneration noted.? At this point time the knee was brought into full extension and we performed our standard evaluation of our gap balancing stressing his?ligaments and extension as well as flexion appropriate adjustments were made to have appropriate gap balancing in both fl exion and extension.? This plan for final counts.? We get a preoperative plan evaluating our implants which was a size 5 femur and a size 4 tibia.? Next we brought in the Francisco robot and sequentially made our femur cuts.? All excess bony cuts were then removed.? Finally we made our tibial cut.? Once this was done a standard PCL retractor was then placed into this position I excised the medial and?lateral meniscus.? The tibial cut was then subsequently removed all excess bony debris was removed.? I then utilized a?lamina industrial millwright and remove the posterior osteophytes.? At this point time sized the tibia and confirmed this was a size 4.? I utilized our blunt probe to establish rotation of tibial implant.? Once this was done I then placed my tibia size 4 trial in appropriate position and then subsequently placed tibial pins to hold this into place placed a size 11 mm poly as well as a size 5 femur which was appropriately impacted in place knee was then subsequently brought into extension. Trials were then assessed,? this was stable with varus valgus stress in extension as well as had symmetrical translation when brought into flexion demonstrating symmetrical gaps. I had excellent balance gaps in flexion and extension with varus and valgus stresses.? At this point I was satisfied with these implants these were then verified and opened on the back table size 4 tibia, size 5 femur,? size 11 mm polythickness.? We did confirm appropriate gap balancing and stresses as well as alignment utilizing? [place] and were satisfied with this plan.? ?At this point time with my trials in place I then towel clip the patella everted this made appropriate measurements subsequently utilizing freehand technique performed by patellar resurfacing this was confirmed to be appropriate resection and subsequently sized to be a 31 mm symmetric.? My drill peg guides were then clamped and appropriate position and appropriate position in the patella for appropriate tracking and parallel with the joint.? Pegs were drilled trial implant was placed and the knee was then subsequently ranged and found to have excellent patellar tracking.? Femur pegs were then drilled.? All checkpoints as well as guidepins and arrays were removed and appropriate counts made.?Satisfied with our tibial placement rotation I then utilized the keel punch and prepped the tibia.? At this point time all of our trial implants were removed.? The wound bed? was thoroughly irrigated and dried and prepped for cementation.? Cement was mixed on the back table.? Once cement was ready this was then covered onto the tibia and the tibial baseplate was then impacted and all excess cement was removed.? Next the polyethylene was then impacted into place on the tibial baseplate.? Next cement was placed onto the femur as well as under the femur implants and impacted in to place and all excess cement was extruded and removed.? Knee was taken into full extension? to clear all excess cement was removed.? Warm saline was placed over the joint.? I then towel clip patella and dried for cementation. cemented the patella into place.? This was all clamped and the cement was allowed to cure.? Thorough irrigation performed with pulse?lavage.? I then placed my periarticular injection while the cement was curing.? Once cured the knee was taken through range of motion and had excellent stability and gaps were balanced in flexion and extension.? Tourniquet was then deflated. hemostasis satisfactory with electrocautery.? Abx vanco powder was placed within the wound bed for infection prophylaxis. Next I then subsequently closed the capsule with Ethibond suture as well as a running strata fix suture.? Knee was then taken through range of motion 30 times.? Next the skin was then closed in?layered fashion of running stratifix sutures of deep and subcutenous tissue and skin.? ?closed in flexion and Prineo glue was then placed over the incision this allowed to cure.? Incision was covered with calos, with ABDs soft roll and Jono wrap.? Patient was then awakened from anesthesia and taken to PACU in stable condition. Disposition: Patient taken to PACU in stable condition will be admitted to the floor for pain control PT/OT weight-bear as tolerated?Right?lower extremity dressing changes as needed, DVT prophylaxis. Pain control. Patient will receive appropriate postoperative antibiotics. patient will be seen today by the [facility] medicine team for medical management.? Patient will follow up with the office in 2 weeks.? Patient understands agrees with current plan.? All questions answered.
--- NOTE | 2023-11-17 17:56 | W.PM.BPON ---
Date of Procedure: [November 17, 2023] Surgeon: [Dr. Tang DO] Senior Enterprise Architect(s): [Yobani Tang PA-C] Procedure(s) performed: [Right total knee arthroplasty with Francisco robotic assist] Findings of the procedure(s): [Right total knee degenerative joint disease] Estimated blood loss: [25 ml] Specimen(s) removed: [n/a] Post-operative diagnosis: [Right knee degenerative joint disease]
--- NOTE | 2023-11-17 18:03 | P.CONIM_ITS ---
Providers/Reason For Consult 2 Consulting Physician/Specialty*: orthopedics Reason for Consult*: htn Attending Physician: Julio Tang DO Primary Care Provider: Hermes Cortes DO History of Present Illness History of Present Illness Lily Díaz is a 73 year old female with a past medical history of paroxysmal atrial flutter, who presents to [facility] right knee total knee arthroplasty by Dr. Tang, hospitalist team was called for medical management, she reports a history of atrial flutter when she had COVID, but she converted to normal sinus rhythm in the emergency room, it has not been an issue since then she uses aspirin 81, no history of strokes or history of CAD no history of COPD denies any chest pain, no palpitations, shortness of breath Review of Systems 2 Const: Denies: fever(s) Card: Denies: chest pain Resp: Denies: dyspnea GI: Denies: abdominal pain Medications/Allergies Home Medications Medication Instructions Recorded Confirmed Last Taken Type acetaminophen 500 mg tablet 500 mg PO BEDTIME PRN Pain 06/07/21 11/14/23 11/16/23 History aspirin 81 mg tablet,delayed 81 mg PO DAILY #90 tabs 07/04/21 11/14/23 11/09/23 Rx release (Adult Low Dose Aspirin) metoprolol succinate 50 mg 50 mg PO DAILY #90 tabs 04/24/23 11/14/23 11/16/23 Rx tablet,extended release 24 hr Allergies Allergy/AdvReac Type Severity Reaction Status Date / Time No Known Allergies Allergy Verified 11/07/23 10:36 Current Medications Generic Name Dose Route Start Last Admin Trade Name Freq PRN Reason Stop Dose Admin Sodium Chloride 1,000 mls @ 30 mls/hr 11/17/23 14:30 11/17/23 16:23 Sodium Chloride 0.9% IV 11/18/23 14:29 Infused .Q24H PAUL Infusion PFSH Acute 2 PFSH: Medical History Arthritis HTN (hypertension) Surgical History S/P hemorrhoidectomy S/P left knee arthroscopy Family History Father Hypertension Aortic aneurysm S/P CABG (coronary artery bypass graft) Mother Mitral valve stenosis Second degree heart block Stroke Grandmother Stroke Grandfather Lung disease Son Diabetes Social History Smoking and tobacco/nicotine status: never used tobacco/nicotine Second hand smoke exposure: No Alcohol intake: current Alcohol intake frequency: few times a week Alcohol type: wine Substance/Drug Use: never Vitals/I&O/Wt Last Vital Signs Temp 97.4 F L 11/17/23 17:45 Pulse 90 11/17/23 17:45 Resp 16 11/17/23 17:45 BP 112/57 11/17/23 17:45 Pulse Ox 95 11/17/23 17:45 O2 Del Method Room Air 11/17/23 17:45 11/17/23 11/17/23 11/17/23 06:59 14:59 22:59 Intake Total 1450 / 1450 Output Total 625 / 625 Balance 825 / 825 Weight last 48 hrs Weight 80.286 kg Physical Exam 2 Const: COMMON NORMALS: no acute distress and patient oriented x3 HENMT: COMMON NORMALS: normocephalic HEAD & SCALP: normocephalic Resp: COMMON NORMALS: normal respiratory effort, No retractions, No use of accessory muscles and clear to auscultation bilaterally AUSCULTATION: clear to auscultation bilaterally Cardio: COMMON NORMALS: regular rate, regular rhythm, S1 normal heart sound present and S2 normal heart sound present RATE: regular rate RHYTHM: r egular rhythm HEART SOUNDS: S1 normal heart sound present and S2 normal heart sound present GI: COMMON NORMALS: Normal to inspection, nondistended, normoactive bowel sounds present and non-tender Extremity: COMMON NORMALS: no calf tenderness and no pedal edema NARRATIVE EXTREMITY EXAM: Right lower extremity wrapped Neuro: COMMON NORMALS: patient oriented x3 Psych: COMMON NORMALS: mental status grossly normal Data 11/17/23 14:49 11/17/23 14:49 A&P Assessment and plan (1) HTN (hypertension): (2) Atrial fibrillation/flutter: Plan Status post right knee arthroplasty Eliquis for DVT prophylaxis, PT OT, pain control as per orthopedic service Atrial flutter, continue metoprolol, uses aspirin 81 mg at home hold for now as she is on Eliquis Hypertension resume metoprolol Consult Attestations 2 Medical Necessity Statement: Patient requires hospitalization status post right knee arthroplasty Diagnoses HTN (hypertension) I10 Atrial fibrillation/flutter I48.91; I48.92
--- NOTE | 2023-11-17 18:04 | PM.PACU ---
PACU note Narrative: Patient is a 73-year-old female just underwent a right total knee arthroplasty. Pt transferred to PACU in stable condition. Dressing is dry. pt is awake and alert. pt can wiggle toes. Unable to assess any further motor or sensory function due to residual spinal block. Distal pulses are palpable toes are warm and well-perfused. Cap refill is normal and under 2 seconds. Pain is controlled. Exam: awake Disposition: admitted
--- NOTE | 2023-11-17 18:25 | ANE.PACU2 ---
Inpatient post-anesthesia follow up: Airway intact: Yes Vital signs: Temperature 97.6 F Pulse Rate 73 Respiratory Rate 20 Blood Pressure 117/66 Pulse Oximetry 98 Oxygen Delivery Me thod Room Air Oxygen Flow Rate Fraction of Inspir ed Oxygen Hydration adequate: Yes Nausea and vomiting: No Pain level: 1 Mental status: Baseline
[2023-11-17] MEDS: calcium carb-vit d 600mg/400unit 1 Tablet 1 EACH PO (19:49)
[2023-11-17] MEDS: sennosides-docusate Tablet 2 TAB PO (19:50)
[2023-11-17] MEDS: iron polysaccharide complex 150 mg Capsule PO (19:50)
[2023-11-17] MEDS: lactated ringers 1,000 ML 100 ML IV (19:50)
[2023-11-17] MEDS: chlorhexidine gluconate 0.12% Btl 473 mL 30 ML MUCOUS MEM (19:52)
[2023-11-17] MEDS: tranexamic acid 1,000 MG/100 ML PREMIX 600 MG IV (22:15)
[2023-11-17] MEDS: oxyCODONE 5 mg IR Tab/Cap PO (22:39)
[2023-11-18] VITALS (7 sets, daily range): BP systolic 117–134; BP diastolic 66–73; PULSE 62–73; RESP 16–20; TEMP 36.4–36.8; O2SAT 97–98
[2023-11-18] MEDS: acetaminophen 1,000 MG/100 ML PIGGYBACK 400 MG IV (02:12)
[2023-11-18 06:02] LABS: Basophils % 0.2 %; Lymphocytes # 1.3 10^3/uL (0.8-4.8); Lymphocytes % 13.8 %; Mean Corpuscular HGB Conc 32.3 g/dL (30-55); Mean Corpuscular Volume 89.9 fl (85-98); Mean Platelet Volume 9.1 fL (7.4-10.4); Monocytes # 0.6 10^3/uL (0.2-0.9); Monocytes % 6.7 %; Neutrophils # 7.41 10^3/uL (1.8-7.7); Nucleated Red Blood Cells % 0 %; Platelet Count 271 10^3/cmm (157-399); Red Blood Count 4.34 10^6/uL (3.85-5.65); Red Cell Distribution Width 13.2 % (12.1-15.1); White Blood Count 9.38 10^3/uL (3.29-11.43)
[2023-11-18] MEDS: ceFAZolin 2,000 MG in sodium chloride 0.9% (plus) 50 ML 100 MG IV (06:09)
[2023-11-18] MEDS: lactated ringers 1,000 ML 100 ML IV (06:10)
[2023-11-18] MEDS: TRAMadol 50 mg Tablet PO (06:14)
[2023-11-18 06:26] LABS: Anion Gap 15.5 (5-19); Blood Urea Nitrogen 10 mg/dL (8-23); Calcium 8.7 mg/dL (8.5-10.5); Carbon Dioxide 22 mmol/L (22-29); Chloride 105 mmol/L (98-107); Creatinine Clr Calc Pharmacy 68.9284; Glucose 131 mg/dL (65-115); Osmolality Calculated 287 mOsm/kg (285-295); Potassium 4.5 mmol/L (3.5-5.1); Sodium 138 mmol/L (136-145)
[2023-11-18] MEDS: metoprolol succinate ER (24 HR) 50 mg Tablet PO (08:00)
[2023-11-18] MEDS: multivitamin therapeutic Tablet 1 TAB PO (08:00)
[2023-11-18] MEDS: apixaban 5 mg Tablet 2.5 MG PO (08:00)
[2023-11-18] MEDS: oxyCODONE 5 mg IR Tab/Cap PO (08:00)
[2023-11-18] MEDS: calcium carb-vit d 600mg/400unit 1 Tablet 1 EACH PO (08:00)
[2023-11-18] MEDS: docusate sodium 100 mg Capsule PO (08:00)
[2023-11-18] MEDS: iron polysaccharide complex 150 mg Capsule PO (08:00)
--- NOTE | 2023-11-18 08:03 | PM.DCS ---
Discharge Providers Date of Admission: 11/17/23 17:50 Date of Discharge: November 18, 2023 Attending Provider at Admission: Julio Tang DO Attending Provider at Discharge: Julio Tang DO Consults: Hospitalist?Dr. Esquivel Primary Care Provider: Hermes Cortes DO Diagnoses at Discharge Discharge Diagnosis (1) HTN (hypertension): Status: Acute (2) Atrial fibrillation/flutter: Status: Acute Reason for Visit Reason for Visit: M17.11 Brief History: Status post right TKA Hospital Course Hospital Course Patient presented to the preoperative holding area with plan for right total knee arthroplasty after patient has been worked up in the outpatient setting for failed conservative treatment of right knee degenerative joint disease. Once cleared by anesthesia for surgery patient subsequently was taken back to the operative suite underwent anesthesia per anesthesia department and then subsequently underwent a right total knee arthroplasty. Procedure was performed without any complications patient was taken to PACU in stable condition patient recovered well in PACU and then was admitted to the floor postoperatively internal medicine was consulted and on board for medical management and assistance with care. Patient received appropriate PT/OT, postoperative antibiotics, postoperative TXA, pain control, postoperative DVT prophylaxis. Elevation and ice. Patient encouraged for knee range of motion allowed weightbearing as tolerated to the operative lower extremity. Dressing was changed as needed, labs were monitored daily. Patient recovered well postoperatively and worked well and progressed well with therapy. It was determined on postoperative day 1 the patient was stable for discharge from an orthopedic standpoint and medicine. Patient was comfortable with discharge and plan was discharged home. Patient received appropriate discharge instructions as well as pain medication and DVT prophylaxis postoperatively. Given appropriate instructions for dressing management. Patient will follow-up with Dr. Tang/orthopedics in the office in 2 weeks. All questions answered. Understand if there is any issues questions or concerns and contact the office. Physical Exam Narrative: Patient seen and examined right lower extremity demonstrates dressings on in place, clean dry and intact. No saturation noted. Patient's compartments are soft and compressible calf soft nontender she is able to perform straight leg raise as well as wiggle toes plantarflex and dorsiflex ankle. Sensations intact light touch distally toes warm well-perfused brisk cap refill less than 2 seconds distal pulses palpable. Urinary Catheter Management: Arciniega: Cath Placed During This Visit: yes, but has since been removed by the nurse Reason for Continuing Indwelling Catheter: Acute Urinary Retention or Obstruction Date Urinary Catheter Removed: 11/18/23 Time Urinary Catheter Discontinued: 06:00 Discharge Data Studies Completed and Pending Completed Studies During Hospitalization Category Date Time Status XR knee RT 1-2V [id number] Routine Exams 11/17/23 15:33 Completed Pending at discharge Category Date Time Status Basic Metabolic Panel AM LABS Lab 11/19/23 04:00 Ordered Basic Metabolic Panel AM LABS Lab 11/20/23 04:00 Ordered Complete Blood Count w/Auto AM LABS Lab 11/19/23 04:00 Ordered Complete Blood Count w/Auto AM LABS Lab 11/20/23 04:00 Ordered Radiology Impressions Knee X-Ray 11/17/23 15:33 IMPRESSION: 1. Postoperative radiographs status post total right knee arthroplasty with components in expected position. Laboratory Results WBC 9.38 10^3/uL (3.29-11.43) 11/18/23 05:25 RBC 4.34 10^6/uL (3.85-5.65) 11/18/23 05:25 Hgb 12.60 g/dL (11.27-16.99) 11/18/23 05:25 Hct 39.0 % (36-47) 11/18/23 05:25 MCV 89.9 fl (85-98) 11/18/23 05:25 MCH 29.0 pg (27-33) 11/18/23 05:25 MCHC 32.3 g/dL (30-55) 11/18/23 05:25 RDW 13.2 % (12.1-15.1) 11/18/23 05:25 Plt Count 271 10^3/cmm (157-399) 11/18/23 05:25 MPV 9.1 fL (7.4-10.4) 11/18/23 05:25 Neut % (Auto) 79.0 % 11/18/23 05:25 Lymph % (Auto) 13.8 % 11/18/23 05:25 [place] % (Auto) 6.7 % 11/18/23 05:25 Eos % (Auto) 0.0 % 11/18/23 05:25 Baso % (Auto) 0.2 % 11/18/23 05:25 Neut # (Auto) 7.41 10^3/uL (1.8-7.7) 11/18/23 05:25 Lymph # (Auto) 1.3 10^3/uL (0.8-4.8) 11/18/23 05:25 [place] # (Auto) 0.6 10^3/uL (0.2-0.9) 11/18/23 05:25 Eos # (Auto) 0.0 10^3/uL (0.0-0.8) 11/18/23 05:25 Baso # (Auto) 0.0 10^3/uL (0.0-0.1) 11/18/23 05:25 Nucleated RBC % (auto) 0 % 11/18/23 05:25 Nucleated RBCs # 0.0 /100WBC 11/18/23 05:25 Sodium 138 mmol/L (136-145) 11/18/23 05:25 Potassium 4.5 mmol/L (3.5-5.1) 11/18/23 05:25 Chloride 105 mmol/L (98-107) 11/18/23 05:25 Carbon Dioxide 22 mmol/L (22-29) 11/18/23 05:25 Anion Gap 15.5 (5-19) 11/18/23 05:25 BUN 10 mg/dL (8-23) 11/18/23 05:25 Creatinine 0.5 mg/dL (0.5-0.9) 11/18/23 05:25 GFR Calculation Not Reportable 11/18/23 05:25 Glucose 131 mg/dL (65-115) H 11/18/23 05:25 Calculated Osmolality 287 mOsm/kg (285-295) 11/18/23 05:25 Calcium 8.7 mg/dL (8.5-10.5) 11/18/23 05:25 Blood Type O Positive 11/17/23 14:49 Rho(D) Type Rh positive 11/17/23 14:49 Antibody Screen Negative 11/17/23 14:49 Vitals Last Vital Signs Temp 97.8 F 11/18/23 07:43 Pulse 62 11/18/23 07:43 Resp 18 11/18/23 07:43 BP 134/73 11/18/23 07:43 Pulse Ox 97 11/18/23 07:43 O2 Del Method Room Air 11/18/23 07:43 Discharge Plan Discharge Patient Disposition: Home Health Service Condition: Stable Prescriptions: New oxycodone 5 mg tablet 5 mg PO Q6H PRN (Reason: pain postop) 7 Days Qty: 28 0RF ondansetron 4 mg tablet,disintegrating 4 mg PO Q8H PRN (Reason: nausea and vomiting) 3 Days Qty: 9 0RF Eliquis 2.5 mg tablet 2.5 mg PO BID 14 Days Qty: 28 0RF Continued metoprolol succinate 50 mg tablet extended release 24 hr 50 mg PO DAILY Qty: 90 2RF acetaminophen [Tylenol Ex Str Rapid Release] 500 mg Tablet 500 mg PO BEDTIME PRN (Reason: Pain) Held aspirin [Adult Low Dose Aspirin] 81 mg tablet,delayed release (DR/EC) 81 mg PO DAILY Qty: 90 3RF Hold Instructions: Resume on 12/02/23. Discharge Orders: Discharge Order (Routine); Ordered 11/18/23 Ordered By: Julio Tang Referrals: Julio Tang, [Physician] - Discharge Diet: Regular Discharge Activity: Limit activity as instructed Patient Instructions: Acute Wound Care (DC), Opioid Safety, Post Anesthesia Care Activity Restrictions/Additional Instructions: Orthopedic discharge instructions: Dong Dressing--Keep dressing on and dry. After 3 days you can remove some of the dressing and shower. disconnect battery pack when showering. Dong dressing will stay on until follow up appt in 2 weeks. The battery pack for the dressing will at 5-7 days. Battery pack can be removed and discarded once batteries . Patient may weight-bear as tolerate to the operative extremity Utilize crutches as needed Encourage knee range of motion Ice and elevate as needed for pain and swelling Take pain medication as prescribed Take antinausea medication as needed The prescribed Eliquis twice daily for the next 14 days for blood clot prevention Hold aspirin until completed Eliquis May supplement for pain with Tylenol [id number] as needed No baths or soaks Follow-up in the orthopedic office in 2 weeks Contact the office for any questions or concerns Discharge Attestations Time Spent in Discharge Care*: less than 30 min Quality Metrics Clinical Quality Measures [ No reported AMI, CVA or VTE this stay] Coding Level of Care Code Acute Code for Chg Fwd Diagnoses HTN (hypertension) I10 Atrial fibrillation/flutter I48.91; I48.92 Time Spent (min) 20
--- NOTE | 2023-11-18 09:10 | PC.CHAP ---
Pastoral Care Encounter/Spiritual Assessment Type of Contact [] Declined print color matcher visit [] Patient/Family/Request visit [] Outpatient visit [] Follow-up visit [] Physician referral [] Code/Alert [x] Routine visit [] Staff referral [] Actively dying [] Patient sleeping [] Family support [] [] Out of room [] Palliative care [] [] Receiving care in room [] Pre-surgical visit [] Trauma [] Long length of stay [] ICU visit [] Other: Relational/Emotional Strength [x] Patient feels connected with others/family/visitors/staff [] Distress [] Loneliness/isolation [] Abandonment Spirituality of Patient [x] Person of Yareli [] Attends Rastafari of their Yareli [x] Believes in Prayer [] Reads Bible or Alevism materials [] There are Spiritual issues to be addressed 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 Interventions [x] Prayer [x] Active listening [] Non-anxious presence [x] Spiritual/emotional support [] Crisis/trauma care [] Spiritual counseling [] Bereavement support [] Provided bereavement packet [] Provided Bible/devotional materials [] Provided toy/stuffed animal, coloring book to patient or family member [] Provided Communion [] Anointing/[place] [] Salvation [x] Completed spiritual assessment [] Other: Impact on Illness or Injury [] Angry [] Fearful [] Anxious [] Often cries [] Exhaustion [] Unable to work [] Unable to attend jewish [] Unable to walk/stand [] Unable to read [] Unable to drive [] Unable to eat/drink [] Unable to sleep [] Unable to be with family [] Patient intubated [] Other: Summary Time spent with patient 5 min
--- NOTE | 2023-11-18 10:50 | PM.CONSULT ---
Providers/Reason For Consult Attending Physician: Julio Tang DO Primary Care Provider: Hermes Cortes DO History of Present Illness History of Present Illness Lily Díaz is a 73 year old female Medications/Allergies Home Medications Medication Instructions Recorded Confirmed Last Taken Type acetaminophen 500 mg tablet 500 mg PO BEDTIME PRN Pain 06/07/21 11/14/23 11/16/23 History aspirin 81 mg tablet,delayed 81 mg PO DAILY #90 tabs 07/04/21 11/14/23 11/09/23 Rx release (Adult Low Dose Aspirin) metoprolol succinate 50 mg 50 mg PO DAILY #90 tabs 04/24/23 11/14/23 11/16/23 Rx tablet,extended release 24 hr apixaban 2.5 mg tablet (Eliquis) 2.5 mg PO BID 2 weeks #28 tabs 11/17/23 Unknown Rx ondansetron 4 mg disintegrating 4 mg PO Q8H PRN nausea and 11/17/23 Unknown Rx tablet vomiting 3 days #9 tabs oxycodone 5 mg tablet 5 mg PO Q6H PRN pain postop 7 days 11/18/23 Unknown Rx #28 tabs Allergies Allergy/AdvReac Type Severity Reaction Status Date / Time No Known Allergies Allergy Verified 11/07/23 10:36 Current Medications Generic Name Dose Route Start Last Admin Trade Name Freq PRN Reason Stop Dose Admin Apixaban 2.5 mg 11/18/23 09:00 11/18/23 08:00 Apixaban 5 Mg Tablet PO 2.5 mg BID PAUL Administration Calcium Carbonate 1 each 11/17/23 18:35 11/18/23 08:00 Calcium Carb-Vit D 600mg/400unit 1 Tablet PO 1 each BID PAUL Administration Chlorhexidine Gluconate 30 ml 11/17/23 18:35 11/18/23 08:00 Chlorhexidine Gluconate 0.12% Btl 473 Ml MUCOUS MEM Not Given QID PAUL Docusate Sodium 100 mg 11/17/23 18:35 11/18/23 08:00 Docusate Sodium 100 Mg Capsule PO 100 mg BID PAUL Administration Acetaminophen 1,000 mg in 100 mls @ 400 mls/hr 11/17/23 18:35 11/18/23 02:44 Acetaminophen IV 11/18/23 18:44 Infused Q8H PAUL Infusion Lactated Ringer's 1,000 mls @ 100 mls/hr 11/17/23 18:35 11/18/23 09:05 Lactated Ringers IV 0 mls/hr .Q10H PAUL Infusion Cefazolin Sodium 2,000 mg/ 50 mls @ 100 mls/hr 11/17/23 23:00 11/18/23 06:50 Sodium Chloride IV 11/18/23 15:29 Infused Q8H PAUL Infusion Protocol Metoprolol Succinate 50 mg 11/18/23 09:00 11/18/23 08:00 Metoprolol Succinate Er (24 Hr) 50 Mg Tablet PO 50 mg DAILY PAUL Administration Multivitamins Therapeutic 1 tab 11/18/23 09:00 11/18/23 08:00 Multivitamin Therapeutic Tablet PO 1 tab DAILY PAUL Administration Mupirocin 1 applic 11/17/23 18:35 11/18/23 08:00 Mupirocin Oint 22 Gm NASAL 11/22/23 18:34 Not Given BID [facility] Protocol Oxycodone HCl 5 mg 11/17/23 18:35 11/18/23 08:00 Oxycodone 5 Mg Ir Tab/Cap PO 5 mg Q4H PRN Administration MODERATE PAIN Polysaccharide Iron Complex 150 mg 11/17/23 18:35 11/18/23 08:00 Iron Polysaccharide Complex 150 Mg Capsule PO 150 mg BIDWM PAUL Administration Senna/Docusate Sodium 2 tab 11/17/23 18:35 11/18/23 08:00 Sennosides-Docusate Tablet PO Not Given BID PAUL Tramadol HCl 50 mg 11/17/23 18:35 11/18/23 06:14 Tramadol 50 Mg Tablet PO 50 mg Q4H PRN Administration MILD TO MODERATE PAIN PFSH Acute PFSH: Medical History Arthritis HTN (hypertension) Surgical History S/P hemorrhoidectomy S/P left knee arthroscopy Family History Father Hypertension Aortic aneurysm S/P CABG (coronary artery bypass graft) Mother Mitral valve stenosis Second degree heart block Stroke Grandmother Stroke Grandfather Lung disease Son Diabetes Social History Smoking and tobacco/nicotine status: never used tobacco/nicotine Second hand smoke exposure: No Alcohol intake: current Alcohol intake frequency: few times a week Alcohol type: wine Substance/Drug Use: never Vitals/I&O/Wt Last Vital Signs Temp 97.8 F 11/18/23 08:50 Pulse 62 11/18/23 08:50 Resp 18 11/18/23 08:50 BP 134/73 11/18/23 08:50 Pulse Ox 97 11/18/23 08:50 O2 Del Method Room Air 11/18/23 08:50 11/17/23 11/18/23 11/18/23 22:59 06:59 14:59 Intake Total 2150 / 2150 1560 / 3710 531.667 / 531.667 Output Total 1525 / 1525 100 / 1625 Balance 625 / 625 1460 / 2085 531.667 / 531.667 Weight last 48 hrs Weight 80.286 kg Weight 80.286 kg Physical Exam Urinary Catheter Management: Arciniega: Cath Placed During This Visit: yes, but has since been removed by the nurse Reason for Continuing Indwelling Catheter: Acute Urinary Retention or Obstruction Date Urinary Catheter Removed: 11/18/23 Time Urinary Catheter Discontinued: 06:00 Data 11/18/23 05:25 11/18/23 05:25 Coding Level of Care Code Acute Code for Naheed Garcia
--- NOTE | 2023-11-18 13:27 | P.PN_ITS ---
Subjective 2 Subjective: Patient will be discharged today, I had a detailed discussion about her anticoagulant therapy, she is going to continue Eliquis 2.5 mg twice daily for roughly 2 weeks, and then thereafter resume aspirin, hold aspirin until she finishes Eliquis. She has a history of atrial flutter, her CHADS2 Vascor is 3, given her age, female, hypertension. I would recommend anticoagulant therapy, due to risk of strokes, however she wants to have a shared decision making with her and her primary care which is reasonable. I had a detailed discussion with her that she should have a detailed discussion with her primary care for long- term consideration of anticoagulant therapy. I had a detailed discussion with her about Eliquis, monitor for bloody or black stools, monitor for falls if so please go to the emergency room. Discussed with her that she would have any strokelike symptoms to please call 911. She voiced understanding, all questions answered, continue metoprolol. Follow-up with primary care. Vitals/I&O/Wt Last Vital Signs Temp 97.8 F 11/18/23 11:43 Pulse 62 11/18/23 11:43 Resp 18 11/18/23 11:43 BP 134/73 11/18/23 11:43 Pulse Ox 97 11/18/23 11:43 O2 Del Method Room Air 11/18/23 08:50 11/17/23 11/18/23 11/18/23 22:59 06:59 14:59 Intake Total 2150 / 2150 1560 / 3710 531.667 / 531.667 Output Total 1525 / 1525 100 / 1625 Balance 625 / 625 1460 / 2085 531.667 / 531.667 Weight last 48 hrs Weight 80.286 kg Weight 80.286 kg Physical Exam 2 Const: COMMON NORMALS: no acute distress ORIENTATION/CONSCIOUSNESS: Yes awake, Yes oriented to person, Yes oriented to place and Yes oriented to time Resp: COMMON NORMALS: normal respiratory effort, No retractions, No use of accessory muscles and clear to auscultation bilaterally AUSCULTATION: clear to auscultation bilaterally Cardio: COMMON NORMALS: regular rate, regular rhythm, S1 normal heart sound present and S2 normal heart sound present RATE: regular rate RHYTHM: r egular rhythm HEART SOUNDS: S1 normal heart sound present and S2 normal heart sound present GI: COMMON NORMALS: Normal to inspection, nondistended, normoactive bowel sounds present and non-tender Extremity: COMMON NORMALS: no pedal edema Neuro: SENSORIUM/ORIENTATION: Yes oriented to person, Yes oriented to place and Yes oriented to time Psych: COMMON NORMALS: mental status grossly normal Urinary Catheter Management: Arciniega: Cath Placed During This Visit: yes, but has since been removed by the nurse Reason for Continuing Indwelling Catheter: Acute Urinary Retention or Obstruction Date Urinary Catheter Removed: 11/18/23 Time Urinary Catheter Discontinued: 06:00 Data 11/18/23 05:25 11/18/23 05:25 A&P Assessment and plan (1) HTN (hypertension): (2) Atrial fibrillation/flutter: Plan as above Attestations 2 Medical Necessity Statement*: will be discharged today Diagnoses HTN (hypertension) I10 Atrial fibrillation/flutter I48.91; I48.92
== END 2023-11-18 11:23 | disposition home health service (06) ==
LOC: MEDSURG 17:52
PROVIDERS: Physician Assistant; Admitting Provider Student in an Organized Health Care Education/Training Program; PCP Internal Medicine; Visit Provider Student in an Organized Health Care Education/Training Program
PROC: 8E0Y0CZ Robotic Assisted Procedure of Lower Extremity, Open Approach (ICD-10-PCS; CPT 27447; principal; 2023-11-17 15:50)
DX: M17.11 Unilateral primary osteoarthritis, right knee (principal); Z79.01 Long term (current) use of anticoagulants; Z79.82 Long term (current) use of aspirin; I10 Essential (primary) hypertension; I48.91 Unspecified atrial fibrillation
CPT/HCPCS: 20985; 27447; 36415; 73560; 80048; 85025; 86850; 86900; 97116; 97161; 97165; C1776; G0378; J0131; J0171; J0690; J1100; J1885; J2250; J2371; J2704; J2795; J3370; J7030; J7120

== ENCOUNTER → 2023-12-01 13:09 | Outpatient (BNVA) | payer MEDICARE, SELFPAY | PROVIDERS: PCP Internal Medicine; Visit Provider Physician Assistant | DX: Z96.651 Presence of right artificial knee joint (principal) | CPT/HCPCS: 73560; 73565; 99024 ==

== ENCOUNTER 2023-12-09 12:21 | Outpatient (RCR) | payer MEDICARE, SELFPAY | END 2023-12-27 23:59 | disposition home or self-care (01) | LOC: SPT 12:21 | PROVIDERS: PCP Internal Medicine; Visit Provider Student in an Organized Health Care Education/Training Program | DX: Z47.1 Aftercare following joint replacement surgery (principal); Z96.651 Presence of right artificial knee joint | CPT/HCPCS: 97110; 97161 ==

== ENCOUNTER 2023-12-28 06:30 | Outpatient (RCR) | payer MEDICARE, SELFPAY | END 2024-01-26 23:59 | disposition home or self-care (01) | LOC: SPT 06:30 | PROVIDERS: PCP Internal Medicine; Visit Provider Student in an Organized Health Care Education/Training Program | DX: Z47.1 Aftercare following joint replacement surgery (principal); Z96.651 Presence of right artificial knee joint | CPT/HCPCS: 97110 ==

== ENCOUNTER → 2024-01-13 13:41 | Outpatient (BNVA) | payer MEDICARE, SELFPAY | PROVIDERS: PCP Internal Medicine; Visit Provider Physician Assistant | DX: Z96.651 Presence of right artificial knee joint (principal) | CPT/HCPCS: 73560; 73565; 99024 ==

== ENCOUNTER 2024-01-27 06:00 | Outpatient (RCR) | payer MEDICARE, SELFPAY | END 2024-02-26 23:59 | disposition home or self-care (01) | LOC: SPT 06:00 | PROVIDERS: PCP Internal Medicine; Visit Provider Student in an Organized Health Care Education/Training Program | DX: Z47.1 Aftercare following joint replacement surgery (principal); Z96.651 Presence of right artificial knee joint | CPT/HCPCS: 97110 ==

== ENCOUNTER → 2024-02-10 14:06 | Outpatient (BNVA) | payer MEDICARE, SELFPAY | PROVIDERS: PCP Internal Medicine; Visit Provider Physician Assistant | DX: Z96.651 Presence of right artificial knee joint (principal) | CPT/HCPCS: 99213 ==

== ENCOUNTER → 2024-03-10 09:47 | Outpatient (BNVA) | payer MEDICARE, SELFPAY | PROVIDERS: PCP Internal Medicine; Referring Provider Internal Medicine; Visit Provider Nurse Practitioner Family | DX: L57.8 Other skin changes due to chronic exposure to nonionizing radiation (principal); D22.62 Melanocytic nevi of left upper limb, including shoulder; L82.1 Other seborrheic keratosis; L57.0 Actinic keratosis | CPT/HCPCS: 17000; 99203 ==

== ENCOUNTER → 2024-05-13 12:47 | Outpatient (BNVA) | payer MEDICARE, SELFPAY | PROVIDERS: PCP Internal Medicine; Visit Provider Physician Assistant | DX: Z96.651 Presence of right artificial knee joint (principal); M17.12 Unilateral primary osteoarthritis, left knee | CPT/HCPCS: 20610; 73560; 73565; 99213; J3301 ==

== ENCOUNTER 2024-08-04 11:09 | Outpatient (CLI) | payer MEDICARE, SELFPAY | END 2024-08-04 11:10 | disposition home or self-care (01) | LOC: SPT 11:10 | PROVIDERS: PCP Family Medicine; Visit Provider Podiatrist Foot & Ankle Surgery | DX: Z46.89 Encounter for fitting and adjustment of other specified devices (principal); M72.2 Plantar fascial fibromatosis | CPT/HCPCS: 97760; L4397 ==

== ENCOUNTER → 2024-08-17 13:17 | Outpatient (BNVA) | payer MEDICARE, SELFPAY | PROVIDERS: PCP Family Medicine; Visit Provider Physician Assistant | DX: Z96.651 Presence of right artificial knee joint (principal); M17.12 Unilateral primary osteoarthritis, left knee | CPT/HCPCS: 99213 ==

== ENCOUNTER → 2024-09-09 08:27 | Outpatient (BNVA) | payer MEDICARE, SELFPAY | PROVIDERS: PCP Family Medicine; Visit Provider Podiatrist Foot & Ankle Surgery | DX: M72.2 Plantar fascial fibromatosis (principal); M24.571 Contracture, right ankle; M76.61 Achilles tendinitis, right leg; M21.70 Unequal limb length (acquired), unspecified site | CPT/HCPCS: 99213 ==

== ENCOUNTER → 2024-10-27 10:22 | Outpatient (BNVA) | payer MEDICARE, SELFPAY | PROVIDERS: PCP Family Medicine; Visit Provider Student in an Organized Health Care Education/Training Program | DX: M17.12 Unilateral primary osteoarthritis, left knee (principal) | CPT/HCPCS: 73560; 73565; 99214 ==

== ENCOUNTER 2024-11-04 12:55 | Outpatient (CLI) | payer MEDICARE, SELFPAY ==
--- NOTE | 2024-11-04 13:45 | CT_ITS ---
WS: [id number] CT LEFT KNEE[facility] TECHNIQUE: Noncontrast CT of the LEFT knee to include the LEFT hip and ankle. CLINICAL INFORMATION: LEFT TOTAL KNEE ARTHROPLASTY WITH MARY COMPARISON: None. DLP: 953.[address] scans at [facility] use at least one of these dose optimization techniques: automated exposure control; mA and/or kV adjustment per patient size (includes targeted exams where dose is matched to clinical indication); or iterative reconstruction. FINDINGS: Osteopenia. Advanced tricompartmental arthritis LEFT knee. Hypertrophic patella. Hypertrophic changes along the joint line. Small suprapatellar effusion. Vascular calcification. Sigmoid diverticulosis CT/CT knee LT MARY [id number] IMPRESSION: Images obtained for preoperative purposes.
== END 2024-11-04 12:56 | disposition home or self-care (01) ==
LOC: RAD 12:56
PROVIDERS: PCP Family Medicine; Visit Provider Student in an Organized Health Care Education/Training Program
DX: M17.12 Unilateral primary osteoarthritis, left knee (principal); M22.8X2 Other disorders of patella, left knee; M25.462 Effusion, left knee; I70.292 Other atherosclerosis of native arteries of extremities, left leg; K57.32 Diverticulitis of large intestine without perforation or abscess without bleeding
CPT/HCPCS: 73700

== ENCOUNTER 2024-12-03 10:00 | Outpatient (CLI) | payer MEDICARE, SELFPAY ==
[2024-12-03 10:52] LABS: Hematocrit 42.8 % (36-47); Hemoglobin 14.00 g/dL (11.27-16.99); Mean Corpuscular HGB Conc 32.7 g/dL (30-55); Mean Corpuscular Hemoglobin 29.0 pg (27-33); Mean Corpuscular Volume 88.6 fl (85-98); Nucleated Red Blood Cells % 0 %; Platelet Count 282 10^3/cmm (157-399); Red Blood Count 4.83 10^6/uL (3.85-5.65); White Blood Count 5.70 10^3/uL (3.29-11.43)
[2024-12-03 10:53] LABS: Glucose Urine UA Negative (Normal); Nitrate Urine Negative (Negative); Specific Gravity, Urine 1.011 (1.005-1.030)
[2024-12-03 10:58] LABS: Add Urine Microscopic? YES
[2024-12-03 11:12] LABS: Alanine Aminotransferase 16 U/L (0-33); Albumin Level 4.3 g/dL (3.5-5.2); Alkaline Phosphatase 58 U/L (35-105); Anion Gap 14.3 (5-19); Aspartate Amino Transferase 17 U/L (0-32); Blood Urea Nitrogen 11 mg/dL (8-23); Calcium 9.4 mg/dL (8.5-10.5); Carbon Dioxide 28 mmol/L (22-29); Chloride 104 mmol/L (98-107); Globulin 2.9 g/dL (1.3-4.6); Glucose 118 mg/dL (65-115); Osmolality Calculated 294 mOsm/kg (285-295); Potassium 4.3 mmol/L (3.5-5.1); Sodium 142 mmol/L (136-145); Total Protein 7.2 g/dL (6.6-8.7)
== END 2024-12-03 10:01 | disposition home or self-care (01) ==
LOC: LAB 10:04
PROVIDERS: PCP Family Medicine; Visit Provider Student in an Organized Health Care Education/Training Program
DX: Z01.818 Encounter for other preprocedural examination (principal)
CPT/HCPCS: 36415; 80053; 81001; 85025

== ENCOUNTER → 2024-12-06 10:55 | Outpatient (BNVA) | payer MEDICARE, SELFPAY | PROVIDERS: PCP Family Medicine; Visit Provider Family Medicine | DX: Z01.818 Encounter for other preprocedural examination (principal) | CPT/HCPCS: 93005 ==

== ENCOUNTER 2024-12-13 09:28 | Observation (INO) | payer MEDICARE, SELFPAY ==
[2024-12-13] VITALS (18 sets, daily range): BP systolic 121–188; BP diastolic 61–106; PULSE 68–87; RESP 16–19; TEMP 36.2–36.8; O2SAT 95–99; BMI 29.0
[2024-12-13] MEDS: acetaminophen 1,000 MG/100 ML PIGGYBACK 400 MG IV ×3 (06:32→17:16)
[2024-12-13 06:38] LABS: Hematocrit 41.4 % (36-47); Hemoglobin 13.50 g/dL (11.27-16.99); Mean Corpuscular HGB Conc 32.6 g/dL (30-55); Mean Corpuscular Hemoglobin 28.5 pg (27-33); Mean Corpuscular Volume 87.5 fl (85-98); Nucleated Red Blood Cells % 0 %; Platelet Count 268 10^3/cmm (157-399); Red Blood Count 4.73 10^6/uL (3.85-5.65); White Blood Count 4.91 10^3/uL (3.29-11.43)
[2024-12-13 06:55] LABS: Anion Gap 14.1 (5-19); Blood Urea Nitrogen 14 mg/dL (8-23); Calcium 9.2 mg/dL (8.5-10.5); Carbon Dioxide 26 mmol/L (22-29); Chloride 105 mmol/L (98-107); Creatinine Clr Calc Pharmacy 68.4757; Glucose 107 mg/dL (65-115); Osmolality Calculated 293 mOsm/kg (285-295); Potassium 4.1 mmol/L (3.5-5.1); Sodium 141 mmol/L (136-145)
--- NOTE | 2024-12-13 06:57 | W.PM.OPSFHP ---
Same Day Surgery H&P Indication for Procedure/HPI DATE OF PROCEDURE: December 13, 2024 CHIEF COMPLAINT/INDICATIONFOR SURGICAL PROCEDURE: Left knee DJD PREOP DIAGNOSIS: Left knee DJD PLANNED PROCEDURE: Operation Date: 12/13/24 07:00 Proposed Procedures p LEFT Francisco Robot Total Knee Arthroplasty(Left) - Julio Tang, DO Medications/Allergies* Home Medications ?Medication ?Instructions ?Recorded ?Confirmed ?Type acetaminophen 500 mg tablet 500 mg PO BEDTIME PRN Pain 06/07/21 12/09/24 History metoprolol succinate 50 mg 50 mg PO QPM 12/13/24 12/13/24 History tablet,extended release 24 hr Allergies/Adverse Reactions Allergy/AdvReac Type Severity Reaction Status Date / Time No Known Allergies Allergy Verified 12/13/24 06:08 Current Medications: Generic Name Dose Route Start Last Admin Trade Name Freq PRN Reason Stop Dose Admin Sodium Chloride 1,000 mls @ 30 mls/hr 12/13/24 06:15 12/13/24 06:31 Sodium Chloride 0.9% IV 12/14/24 06:14 30 mls/hr .Q24H PAUL Administration Pertinent History/Comorbid Conditions* Medical History (Updated 09/13/24 @ 18:42 by Armen Flores DPM) Arthritis HTN (hypertension) Surgical History (Updated 12/01/23 @ 13:48 by SYLVIE Chawla) S/P hemorrhoidectomy S/P left knee arthroscopy Family History (Updated 07/04/21 @ 14:55 by Jia Sawyer RN) Diabetes Son Aortic aneurysm Father Mitral valve stenosis Mother S/P CABG (coronary artery bypass graft) Father Second degree heart block Mother Lung disease Grandfather Hypertension Father Stroke Mother Grandmother Social History Smoking and tobacco/nicotine status: never used tobacco/nicotine Second hand smoke exposure: No Alcohol intake: current Alcohol intake frequency: few times a week Alcohol type: wine Substance/Drug Use: never Pertinent Exam Findings alert, oriented x 3, operative site marked and procedure specific exam findings Please refer to detailed orthopedic examination on 10/27/2024 listed below: Left knee Exam: ROM (0 to greater than 115) TTP over retropatellar space Patellar crepitus with ROM Medial joint line tenderness to palpation Lateral joint line tenderness to palpation Mild joint effusion Negative Geni's, pain noted Negative Javad's Negative anterior drawer (5?? ) degrees of Varus malalignment, correctable on examStable Varus and Valgus stress Gross motor sensory intact Smooth hip ROM, No pain Recommendations Risks and benefits of procedure reviewed and Patient/family agree to proceed Surgery/Procedure today Other Plans: Patient is cleared the preoperative clearance process and here today and ready to proceed with left total knee arthroplasty?Francisco robotic assisted. Patient understands once again the ins and outs procedure the risk benefits complication alternatives of surgery no change in overall health since the last office visit at this point in time she is ready to proceed with surgical intervention. All questions have been answered at this time. Will proceed to the OR with planned surgery scheduled for left total knee arthroplasty with Francisco robotic assisted today. All questions answered. Coding Level of Care Code Acute Code for Naheed Garcia
--- NOTE | 2024-12-13 07:06 | ANES.PREANE2 ---
Pre-Anesthetic Assessment Height/Weight: Height 1.68 m Weight 81.647 kg Temp Pulse Resp BP Pulse Ox O2 Del Method 98.3 F 73 17 188/106 97 Room Air 12/13/24 06:16 12/13/24 06:16 12/13/24 06:16 12/13/24 06:16 12/13/24 06:16 12/13/24 06:16 Preop Diagnosis: Left knee DJD Operation Date: 12/13/24 07:00 Proposed Procedures p LEFT Francisco Robot Total Knee Arthroplasty(Left) - Julio Tang DO Familial anesthetic complications: NOne Was Beta Tessy taken within 24 hours: Yes Was Clonidine taken within 24 hours: N/A Last intake: Intake Last Liquid Date 12/12/24 Last Liquid Time 22:00 Last Solid Date 12/12/24 Last Solid Time 22:00 Social No alcohol and No tobacco Exam alert, oriented x 3, clear to auscultation bilaterally and regular rate & rhythm Airway Mallampati: Class II CV/HEM Atrial Fibrillation and Hypertension Anesthetic Plan ASA status: 3 Anesthesia: Regional (specify below) Risk of > 500 ml blood loss (7ml/kg in children): No Medications/Allergies Home Medications ?Medication ?Instructions ?Recorded ?Confirmed ?Last Taken ?Type acetaminophen 500 mg tablet 500 mg PO BEDTIME PRN Pain 06/07/21 12/09/24 12/09/24 History night splint #1 ea 08/04/24 10/27/24 Unknown Rx metoprolol succinate 50 mg 50 mg PO QPM 12/13/24 12/13/24 12/12/24 History tablet,extended release 24 hr Allergies Allergy/AdvReac Type Severity Reaction Status Date / Time No Known Allergies Allergy Verified 12/13/24 06:08 Current Medications Generic Name Dose Route Start Last Admin Trade Name Freq PRN Reason Stop Dose Admin Sodium Chloride 1,000 mls @ 30 mls/hr 12/13/24 06:15 12/13/24 06:31 Sodium Chloride 0.9% IV 12/14/24 06:14 30 mls/hr .Q24H PAUL Administration PFSH Anesthesia Medical History Arthritis HTN (hypertension) Surgical History S/P hemorrhoidectomy S/P left knee arthroscopy Family History Father Hypertension Aortic aneurysm S/P CABG (coronary artery bypass graft) Mother Mitral valve stenosis Second degree heart block Stroke Grandmother Stroke Grandfather Lung disease Son Diabetes Social History Smoking and tobacco/nicotine status: never used tobacco/nicotine Second hand smoke exposure: No Alcohol intake: current Alcohol intake frequency: few times a week Alcohol type: wine Substance/Drug Use: never Data Anesthesia 12/13/24 06:20 12/13/24 06:20 Short CBC 12/13/24 Range/Units 06:20 WBC 4.91 (3.29-11.43) 10^3/uL Hgb 13.50 (11.27-16.99) g/dL Hct 41.4 (36-47) % MCV 87.5 (85-98) fl Plt Count 268 (157-399) 10^3/cmm Neut % (Auto) 47.5 % Neut # (Auto) 2.33 (1.8-7.7) 10^3/uL BMP 12/13/24 06:20 Sodium 141 Potassium 4.1 Chloride 105 Carbon Dioxide 26 BUN 14 Creatinine 0.7 Glucose 107 Calcium 9.2 Cardiac Studies: Echocardiogram 08/09/21 Sestamibi Stress Test (Cardiology) 07/20/21 Anesthesia Procedures Nerve Block Nerve Block 1: Main Anesthesia: spinal anesthesia block Time Out Performed: Yes Consent: requested by attending/covering physician, from patient, from other, risks and benefits reviewed and patient agrees to proceed Nerve block location: adductor canal (L) Anesthesia monitors applied: pulse oximetry, EKG, BP cuff and oxygen Nerve block position: supine Anesthetic Used: ropivicaine 0.5% (30 ml) and with decadron (4 mg) Ultrasound used to: recognize landmarks and visualize and ID femerol nerve Nerve Stimulator Used?: Yes Interscalene/Femoral BLK: 4 stimuplex 21 g needle used for position and inplane approach, visualize local anesthetic spread and no vascular puncture identified Injection: neg aspiration of heme Patient Tolerated Procedure: well Complications: none
[2024-12-13] MEDS: ceFAZolin 2,000 MG in sodium chloride 0.9% (plus) 50 ML 100 MG IV (07:10)
--- NOTE | 2024-12-13 08:44 | W.PM.BPON ---
Date of Procedure: 12/13/2024 Surgeon: Julio Tang DO [employer] Director(s): Yobani Tang PA-C Procedure(s) performed: Left total knee arthroplasty?Francisco robotic assisted Findings of the procedure(s): Underwent procedure as planned without issues or complications, taken recovery in stable condition Estimated blood loss: 25 mL Specimen(s) removed: Tibia femur and patellar bone cuts removed Post-operative diagnosis: Left knee DJD
[2024-12-13] MEDS: ROPivacaine 0.2% Premix 100 mL 200 MG INTRA-ARTI (08:50)
[2024-12-13] MEDS: tranexamic acid 1,000 mg/10mL SDV 1000 MG XX (08:50)
--- NOTE | 2024-12-13 08:50 | XRR_ITS ---
PROCEDURE INFORMATION: Exam: XR Left Knee Exam date and time: 12/13/2024 9:08 AM Age: 74 years old Clinical indication: Device placement; Joint replacement hardware; Prior surgery; Surgery date: Post-operative (0-2 days); Surgery type: Post L tka; Additional info: Post L tka, do in pacu TECHNIQUE: Imaging protocol: Radiologic exam of the left knee. Views: 1 or 2 views. COMPARISON: CT knee LT [facility] [id number] 11/04/2024 1:43 PM FINDINGS: Bones/joints: Cemented left total knee arthroplasty. Air within the joint space. Soft tissues: Subcutaneous air and soft tissue edema anteriorly. XR/XR knee LT 1-2V [id number] IMPRESSION: Cemented left total knee arthroplasty.
--- NOTE | 2024-12-13 08:51 | P.OP_ITS ---
Operative Report Date of procedure: December 13, 2024 Surgeon: Julio Tang DO [employer] Operator: Yobani Tang PA-C: PA was necessary for assistance in this case with leg positioning retraction and protection of neurovascular structures as well as assistance in implantation wound closure and dressing application. Procedure: Preoperative diagnosis: Left knee degenerative joint disease Post-op diagnosis: Same Procedure done: Left total knee arthroplasty, cemented?robotic assisted Francisco Implants: Joel triathlon size 5 femur CR cemented?left Joel triathlon size?4 tibia universal baseplate cemented [place] triathlon symmetric patella size 31 mm [place] triathlon polyethylene 10 mm Surgeon: Julio Tang DO Estimated blood?loss: 25 mL Tourniquet 52minutes IV fluids: 1400 mL Urine output: 400 mL Complications: None Condition: stable Disposition: floor Brief History: Patient is a 74-year-old female with with chronic?left knee degenerative joint d isease.? Patient has been worked up in the outpatient setting in the orthopedic office at this point time through shared decision making given? [id number] arthritis as well as failed conservative treatment, and pt would?like to proceed with a?left total knee arthroplasty.? Through shared decision making elected to proceed with surgical intervention for?left total knee arthroplasty with Francisco robotic assisted.? We talked about continued conservative treatment and surgical intervention as far as the risk benefits complications alternatives surgical and nonsurgical treatment options.? At this point time understanding patient risks with surgery patient agrees to proceed with surgical intervention.? Once again? risk with surgery include but are not?limited to make it better make it worse blood clot, heart attack, stroke, on the table, infection, injury to nerves or vessels, persistent pain, arthrofibrosis, implant failure.? Understanding these risks patient agrees to proceed with surgical intervention consent was obtained in the preoperative holding area.? All questions answered. Procedure: Patient was seen and evaluated in the preoperative holding area.? Consent was reviewed and signed with patient with plan for?left total knee arthroplasty.? All questions answered.? Correct extremity marked.? Patient seen and evaluated by the anesthesia department and once cleared for surgery was taken back to the operative suite.? Patient was placed into a supine position on the OR table.? All bony prominences were well-padded.? Patient was appropriately secured to the bed.? Patient underwent anesthesia per the anesthesia department.? Patient received spinal anesthesia and? Arciniega catheter was placed.? A nonsterile tourniquet was applied to the?left thigh.? At this point in time a final timeout performed.? Patient received appropriate preoperative antibiotics and TXA. Next the?left?lower extremity was then prepped and draped in standard orthopedic fashion. Esmarch tourniquet was used exsanguinate the?left?lower extremity.? Tourniquet was insufflated to 250 mmHg. A standard anterior incision was made over midline of the knee.? Sharp scalpel excision through skin and subcutaneous tissue full-thickness skin flaps were made.? Fascia was elevated off of the extensor retinaculum was stable with medial parapatellar arthrotomy was then made.? The performed standard sequential releases..? Immediately on entry into the joint patient was found to have severe eburnated bone and tricompartmental arthritic changes noted? With significant osteophyte formation.? Next the the patella was then stuffed and the knee was then flexed.?? Rose was placed superiorly around the anterior aspect of the femur this was freed of synovium and I subsequently then placed by 2 femur pins to establish my femur arrays for the Francisco robot.? These were then placed bicortically and? femur array was then appropriately secured with appropriate visualization.? Next attention was turned towards the tibial rays.? These were then drilled sequentially bicortically in parallel fashion and intraincisional.? I then placed my guide as well as my tibial array on in place.? This was appropriately secured and had excellent visualization with the Francisco robot.? Next the tibial checkpoint as well as femur checkpoint were then placed.? At this point time I then subsequently established my head center as well as my medial?lateral malleoli as well as my checkpoints.? Next utilizing standard Francisco technology I then mapped out the appropriate points and confirmation points around the femur as well as the tibia in standard fashion.? Once this was then done I then removed all osteophytes in preparation for dynamic testing.? All osteophytes were removed as well as I removed the ACL and the PCL was excised due to its significant tearing and degeneration noted.? At this point time the knee was brought into full extension and we performed our standard evaluation of our gap balancing stressing his?ligaments and extension as well as flexion appropriate adjustments were made to have appropriate gap balancing in both flexion and extension.? This plan for final cuts. Were able to correct patient' s deformity to ligamentous tolerances.? We get a preoperative plan evaluating our implants which was a size 5 femur and a size 4 tibia.? Next we brought in the Francisco robot and sequentially made our femur cuts.? All excess bony cuts were then removed.? Finally we made our tibial cut.? Once this was done a standard PCL retractor was then placed into this position I excised the medial and?lateral meniscus.? The tibial cut was then subsequently removed all excess bony debris was removed.? I then utilized a?lamina patient registration rep and remove the posterior osteophytes.? At this point time sized the tibia and confirmed this was a size 4.? I utilized our blunt probe to establish rotation of tibial implant.? Once this was done I then placed my tibia size 4 trial in appropriate position and then subsequently placed tibial pins to hold this into place placed and trialed up to a size 10 mm poly as well as a size 5 femur which was appropriately impacted in place knee was then subsequently brought into ext ension. Trials were then assessed,? this was stable with varus valgus stress in extension as well as had symmetrical translation when brought into flexion demonstrating symmetrical gaps. I had excellent balance gaps in flexion and extension with varus and valgus stresses.? At this point I was satisfied with these implants these were then verified and opened on the back table size 4 tibia, size 5 femur,? size 10 mm polythickness.? We did confirm appropriate gap balancing and stresses as well as alignment utilizing? Francisco and were satisfied with this plan.? ?At this point time with my trials in place I then towel clip the patella everted this made appropriate measurements subsequently utilizing freehand technique performed by patellar resurfacing this was confirmed to be appropriate resection and subsequently sized to be a 31 mm symmetric.? My drill peg guides were then clamped and appropriate position and appropriate position in the patella for appropriate tracking and parallel with the joint.? Pegs were drilled trial implant was placed and the knee was then subsequently ranged and found to have excellent patellar tracking.? Femur pegs were then drilled.? At this point time all of our trial implants were removed.? All checkpoints as well as guidepins and arrays were removed and appropriate counts made.? Satisfied with our tibial placement rotation I then utilized the keel punch and prepped the tibia.? The wound bed? was thoroughly irrigated and dried and prepped for cementation.? Cement was mixed on the back table.? Once cement was ready this was then covered onto the tibia and the tibial baseplate was then impacted and all excess cement was removed.? Next the polyethylene was then impacted into place on the tibial baseplate.? Next cement was placed onto the femur as well as under the femur implants and impacted in to place and all excess cement was extruded and removed.? Knee was taken into full extension? to clear all excess cement was removed.? Warm saline was placed over the joint.? I then towel clip patella and dried for cementation. cemented the patella into place.? This was all clamped and the cement was allowed to cure.? Thorough irrigation performed with pulse?lavage.? I then placed my periarticular injection while the cement was curing.? Once cured the knee was taken through range of motion and had excellent stability and gaps were balanced in flexion and extension.? Tourniquet was then deflated. hemostasis satisfactory with electrocautery.? Next I then subsequently closed the capsule with Ethibond suture as well as a running strata fix suture.? Knee was then taken through range of motion 30 times.? Next the skin was then closed in?layered fashion of running stratifix sutures of deep and subcutenous tissue and skin.? ?closed in flexion and Prineo glue was then placed over the incision this allowed to cure.? Incision was covered with Silverlon, with ABDs soft roll and Jono wrap.? Patient was then awakened from anesthesia and taken to PACU in stable condition. Disposition: Patient taken to PACU in stable condition will be admitted to the floor for pain control PT/OT weight-bear as tolerated?left?lower extremity dressing changes as needed, DVT prophylaxis. Pain control. Patient will receive appropriate postoperative antibiotics. patient will be seen today by the internal medicine team for medical management.? Patient will follow up with the office in 2 weeks.? Patient understands agrees with current plan.? All questions answered.
--- NOTE | 2024-12-13 09:12 | P.PCN_ITS ---
PACU note Narrative: Patient is a 74-year-old female that just underwent a left total knee arthroplasty. Pt transferred to PACU in stable condition. Dressing is dry. pt is awake and alert. Distal pulses are palpable toes are warm and well- perfused. Cap refill is normal and under 2 seconds. Unable to perform any further motor or sensory assessment due to residual block. Pain is controlled. Exam: awake Disposition: admitted
--- NOTE | 2024-12-13 10:06 | P.CONIM_ITS ---
Providers/Reason For Consult 2 Consulting Physician/Specialty*: Hospitalist Reason for Consult*: Medical management Attending Physician: Julio Tang DO Primary Care Provider: Bassam Nash MD History of Present Illness History of Present Illness Lily Díaz is a 74 year old woman with a history of hypertension (HTN), degenerative joint disease (DJD) of both knees, and a single episode of atrial fibrillation (AFib) three to four years ago who is recovering from an uneventful elective left total knee arthroplasty (TKA) performed earlier today under epidural anesthesia (estimated blood loss 25 mL). She underwent right TKA one year ago without complications. Home medications include metoprolol succinate 50 mg nightly for HTN, acetaminophen as needed, and oxycodone 5 mg every six hours as needed for postoperative pain. Aspirin had been taken for one year but was stopped by the patient a year ago. She denies current chest pain, shortness of breath, nausea, vomiting, fever, chills, cough, gastrointestinal or genitourinary bleeding, rashes, or neurologic symptoms. Pain is currently well- controlled. No symptoms suggestive of recurrent AFib. Denies tobacco, alcohol, or recreational drug use. She is aware of the stroke risk associated with AFib; long-term anticoagulation with apixaban (Eliquis) has been discussed previously and will be revisited with her primary physician. She agrees to inpatient venous thromboembolism (VTE) prophylaxis with apixaban during recovery. Anticipates discharge home tomorrow pending physical-therapy (PT) clearance. Review of Systems 2 Const: Denies: fever(s), chills, body aches or malaise ENMT: Denies: throat pain Card: Denies: chest pain, edema, pre-syncope or dyspnea on exertion Resp: Denies: dyspnea, productive cough, change in phlegm color or hemoptysis GI: Denies: abdominal pain, nausea, vomiting, diarrhea, constipation, hematochezia or melena : Denies: flank pain, urinary frequency or hematuria Musc: Denies: back pain, joint swelling or joint redness Skin/Breast: Denies: rash or new lesions Neuro: Denies: headache(s) or confusion Medications/Allergies Home Medications ?Medication ?Instructions ?Recorded ?Confirmed ?Last Taken ?Type acetaminophen 500 mg tablet 500 mg PO BEDTIME PRN Pain 06/07/21 12/09/24 12/09/24 History night splint #1 ea 08/04/24 10/27/24 Unkn own Rx metoprolol succinate 50 mg 50 mg PO QPM 12/13/2412/1312/12/24 History tablet,extended release 24 hr oxycodone 5 mg tablet 5 mg PO Q6H PRN pain postop 7 days 12/13/24 Unknown Rx #28 tabs Allergies Allergy/AdvReac Type Severity Reaction Status Date / Time No Known Allergies Allergy Verified 12/13/24 06:08 PFSH Acute 2 PFSH: Medical History Atrial fibrillation/flutter Arthritis HTN (hypertension) Surgical History S/P hemorrhoidectomy S/P left knee arthroscopy Family History Father Hypertension Aortic aneurysm S/P CABG (coronary artery bypass graft) Mother Mitral valve stenosis Second degree heart block Stroke Grandmother Stroke Grandfather Lung disease Son Diabetes Social History Smoking and tobacco/nicotine status: never used tobacco/nicotine Second hand smoke exposure: No Alcohol intake: current Alcohol intake frequency: few times a week Alcohol type: wine Substance/Drug Use: never Vitals/I&O/Wt Last Vital Signs Temp 97.6 F 12/13/24 09:49 Pulse 85 12/13/24 09:49 Resp 16 12/13/24 09:49 BP 149/68 12/13/24 09:49 Pulse Ox 98 12/13/24 09:49 O2 Del Method Room Air 12/13/24 09:50 12/12/24 12/13/24 12/13/24 22:59 06:59 14:59 Intake Total 100 / 100 1500 / 1500 Output Total 125 / 125 Balance 100 / 100 1375 / 1375 Weight last 48 hrs Weight 81.647 kg Weight 81.647 kg Physical Exam 2 Const: COMMON NORMALS: patient oriented x3 and alert GENERAL APPEARANCE: c ooperative ORIENTATION/CONSCIOUSNESS: Yes awake HENMT: COMMON NORMALS: oropharynx normal Neck/C-Spine: COMMON NORMALS: no JVD Resp: COMMON NORMALS: normal respiratory effort and clear to auscultation bilaterally AUSCULTATION: clear to auscultation bilaterally Cardio: COMMON NORMALS: no JVD, regular rhythm, S1 normal heart sound present, S2 normal heart sound present and No murmurs present (Cardio) RHYTHM: regular rhythm HEART SOUNDS: S1 normal heart sound present and S2 normal heart sound present GI: COMMON NORMALS: Normal to inspection, nondistended, normoactive bowel sounds present, Soft to palpation and non-tender PALPATION: Yes Soft to palpation Extremity: COMMON NORMALS: no joint enlargement and no pedal edema OTHER: LLE warm, perfused, moving her foot, wrapped in postsurgical elastic dressing, cool pack on. No significant swelling. No bleeding/strikethrough. Neuro: COMMON NORMALS: patient oriented x3 and moves all extremities S ENSORIUM/ORIENTATION: Yes alert Skin: COMMON NORMALS: no rashes or lesions noted GENERAL SKIN EXAM: no rashes or lesions noted Urinary Catheter Management: Arciniega: Cath Placed During This Visit: yes Urinary Catheter Date of Insertion: 12/13/24 Urinary Catheter Time of Insertion: 07:22 Data 12/13/24 06:20 12/13/24 06:20 A&P Assessment and plan 1. Status post total left knee replacement: Post-operative care, left total knee arthroplasty : Uneventful left TKA today with minimal blood loss; patient hemodynamically stable, pain controlled; laboratory values (CBC, BMP) currently normal. Differential for postoperative complications includes hemorrhage (low likelihood given stable hemoglobin), infection (unlikely at this early postoperative stage), VTE (addressed with pharmacologic prophylaxis). Reviewed vitals, CBC, BMP, knee x-ray, surgery note, discussed with orthopedic surgeon. - Re-check hemoglobin tomorrow morning - She will initiate apixaban (Eliquis) for VTE prophylaxis per Ortho - Discontinue IV fluids (alert, diet resumed, maintaining blood pressure) - Provide pain control: scheduled acetaminophen; ketorolac (Toradol) as needed; oxycodone 5 mg PO q6h PRN; IV hydromorphone PRN for severe breakthrough pain - Provide incentive spirometer - Arrange physical-therapy evaluation - Plan discharge home tomorrow pending PT clearance 2. HTN (hypertension): Chronic HTN controlled on home metoprolol; perioperative pressures stable (120/61 mmHg). No evidence of hypertensive emergency or end-organ dysfunction. -Resume metoprolol 3. Atrial fibrillation/flutter: Paroxysmal atrial fibrillation : Single documented episode three to four years ago lasting >24 h; converted spontaneously after metoprolol initiation. Stroke risk elevated due to age and HTN (STEVO?DS?-VASc >=2). Intermittent episodes possible; not on chronic anticoagulation. Eliquis started in hospital for VTE prophylaxis provides temporary stroke protection. - She would like to revisit long-term anticoagulation for AFib with primary provider after discharge. Currently on lower dose Eliquis to which she is agreeable for VTE prophylaxis post orthopedic surgery. - Continue metoprolol -Monitor vitals Plan: Follow-up : Routine inpatient postoperative follow-up to ensure safe discharge. - Orthopedics to monitor recovery during hospitalization - Return home tomorrow if criteria met; follow PCP for anticoagulation discussion PDMP PDMP Reviewed: Not Reviewed Consult Attestations 2 Medical Necessity Statement: Continued observation after left TKA with final anesthesia in a lady with underlying hypertension and paroxysmal A-fib. and High MDM includes amount and/or complexity of data reviewed/ordered [ previous or external records, resulted lab(s)/test(s) and other healthcare professional discussion] and described risk of complication, morbidity or mortality of management as documented Diagnoses Status post total left knee replacement Z96.652 HTN (hypertension) I10 Atrial fibrillation/flutter I48.91; I48.92
[2024-12-13] MEDS: chlorhexidine gluconate 0.12% Btl 473 mL 30 ML MUCOUS MEM ×4 (10:27→22:43)
[2024-12-13] MEDS: sennosides-docusate Tablet 2 TAB PO ×2 (10:28→17:16)
[2024-12-13] MEDS: multivitamin therapeutic Tablet 1 TAB PO (10:28)
[2024-12-13] MEDS: mupirocin oint 22 gm 1 APPLIC NASAL ×2 (10:28→17:16)
[2024-12-13] MEDS: calcium carb-vit d 600mg/400unit 1 Tablet 1 EACH PO ×2 (10:28→17:16)
--- NOTE | 2024-12-13 15:03 | ANE.PACU2 ---
Inpatient post-anesthesia follow up: Airway intact: Yes Vital signs: Temperature 97.6 F Pulse Rate 85 Respiratory Rate 16 Blood Pressure 149/68 Pulse Oximetry 98 Oxygen Delivery Me thod Room Air Oxygen Flow Rate Fraction of Inspir ed Oxygen Hydration adequate: Yes Nausea and vomiting: No Pain level: 1 Mental status: Baseline
[2024-12-13] MEDS: ceFAZolin 2,000 mg SDV 2000 MG IVP ×2 (16:12→22:43)
[2024-12-13] MEDS: tranexamic acid 1,000 MG/100 ML PREMIX 600 MG IV (16:12)
[2024-12-13] MEDS: oxyCODONE 5 mg IR Tab/Cap PO ×2 (16:12→22:42)
[2024-12-13] MEDS: metoprolol succinate ER (24 HR) 50 mg Tablet PO (17:16)
[2024-12-14] MEDS: acetaminophen 1,000 MG/100 ML PIGGYBACK 400 MG IV (02:20)
[2024-12-14 04:43] LABS: Hematocrit 35.4 % (36-47); Hemoglobin 11.60 g/dL (11.27-16.99); Mean Corpuscular HGB Conc 32.8 g/dL (30-55); Mean Corpuscular Hemoglobin 28.7 pg (27-33); Mean Corpuscular Volume 87.6 fl (85-98); Nucleated Red Blood Cells % 0 %; Platelet Count 228 10^3/cmm (157-399); Red Blood Count 4.04 10^6/uL (3.85-5.65); White Blood Count 10.36 10^3/uL (3.29-11.43)
[2024-12-14 05:01] LABS: Anion Gap 14.3 (5-19); Blood Urea Nitrogen 11 mg/dL (8-23); Calcium 8.6 mg/dL (8.5-10.5); Carbon Dioxide 25 mmol/L (22-29); Chloride 103 mmol/L (98-107); Creatinine Clr Calc Pharmacy 68.4757; Glucose 144 mg/dL (65-115); Osmolality Calculated 288 mOsm/kg (285-295); Potassium 4.3 mmol/L (3.5-5.1); Sodium 138 mmol/L (136-145)
[2024-12-14 06:27] VITALS: RESP 16; O2SAT 98
[2024-12-14] MEDS: oxyCODONE 5 mg IR Tab/Cap PO (06:27)
[2024-12-14] MEDS: ceFAZolin 2,000 mg SDV 2000 MG IVP (07:46)
--- NOTE | 2024-12-14 07:51 | P.PN_ITS ---
Subjective 2 Subjective: She reports she is doing well. Pain has been controlled with medication. She has ambulated with physical therapy and is able to get up on her own. Does not have any discomfort or issues. Encouraged continued incentive spirometer use. Vitals/I&O/Wt Last Vital Signs Temp 98.2 F 12/13/24 22:44 Pulse 74 12/13/24 22:44 Resp 16 12/14/24 06:27 BP 124/81 12/13/24 22:44 Pulse Ox 98 12/14/24 06:27 O2 Del Method Room Air 12/13/24 22:44 12/13/24 12/14/24 12/14/24 22:59 06:59 14:59 Intake Total 200 / 1800 Output Total 1220 / 2995 Balance -1020 / -1195 Weight last 48 hrs Weight 81.647 kg Weight 81.647 kg Physical Exam 2 Const: COMMON NORMALS: patient oriented x3 and alert GENERAL APPEARANCE: c ooperative ORIENTATION/CONSCIOUSNESS: Yes awake HENMT: COMMON NORMALS: oropharynx normal Neck/C-Spine: COMMON NORMALS: no JVD Resp: COMMON NORMALS: normal respiratory effort and clear to auscultation bilaterally AUSCULTATION: clear to auscultation bilaterally Cardio: COMMON NORMALS: no JVD, regular rhythm, S1 normal heart sound present, S2 normal heart sound present and No murmurs present (Cardio) RHYTHM: regular rhythm HEART SOUNDS: S1 normal heart sound present and S2 normal heart sound present GI: COMMON NORMALS: Normal to inspection, nondistended, normoactive bowel sounds present, Soft to palpation and non-tender PALPATION: Yes Soft to palpation Extremity: COMMON NORMALS: no joint enlargement and no pedal edema OTHER: LLE warm, perfused, moving her foot, wrapped in postsurgical elastic dressing. No significant swelling. No bleeding/strikethrough. Neuro: COMMON NORMALS: patient oriented x3 and moves all extremities S ENSORIUM/ORIENTATION: Yes alert Skin: COMMON NORMALS: no rashes or lesions noted GENERAL SKIN EXAM: no rashes or lesions noted Urinary Catheter Management: Arciniega: Cath Placed During This Visit: yes, but has since been removed by the nurse Reason for Continuing Indwelling Catheter: Decision to DC Catheter Urinary Catheter Date of Insertion: 12/13/24 Urinary Catheter Time of Insertion: 07:22 Date Urinary Catheter Removed: 12/13/24 Time Urinary Catheter Discontinued: 22:50 Data 12/14/24 04:38 12/14/24 04:38 A&P Assessment and plan 1. Status post total left knee replacement: She is doing well postoperatively today. Reviewed vitals, CBC, BMP. Hemoglobin noted with mild decrease to 11.6. No active bleeding. She is saturating well on room air. Getting up and ambulating. Anticipated discharge home today. Okay to return home anytime from hospitalist standpoint. Reviewed anesthesia note. Encouraged continued incentive spirometer use until usual mobilization. Follow-up arrangements are made. 2. HTN (hypertension): Reviewed blood pressures, well-controlled. Chronic HTN controlled on home metoprolol; perioperative pressures stable (120/61 mmHg). No evidence of hypertensive emergency or end-organ dysfunction. - metoprolol resumed nightly, resuming at discharge 3. Atrial fibrillation/flutter: Paroxysmal atrial fibrillation : Single documented episode three to four years ago lasting >24 h; converted spontaneously after metoprolol initiation. Stroke risk elevated due to age and HTN (STEVO?DS?-VASc >=2). Intermittent episodes possible; not on chronic anticoagulation. Low-dose Eliquis is started for VTE prophylaxis. - Discussed to revisit long-term anticoagulation for AFib with primary provider after discharge. Currently on lower dose Eliquis to which she is agreeable for VTE prophylaxis post orthopedic surgery. - metoprolol resumed nightly, resumed at discharge - Monitor vitals Plan: Follow-up : Routine inpatient postoperative follow-up to ensure safe discharge. - Orthopedics to monitor recovery during hospitalization - Return home; follow PCP for anticoagulation discussion PDMP PDMP Reviewed: Not Reviewed Attestations 2 Medical Necessity Statement*: Returning home. Diagnoses Status post total left knee replacement Z96.652 HTN (hypertension) I10 Atrial fibrillation/flutter I48.91; I48.92
[2024-12-14] MEDS: chlorhexidine gluconate 0.12% Btl 473 mL 30 ML MUCOUS MEM (09:12)
[2024-12-14] MEDS: mupirocin oint 22 gm 1 APPLIC NASAL (09:12)
[2024-12-14] MEDS: calcium carb-vit d 600mg/400unit 1 Tablet 1 EACH PO (09:12)
[2024-12-14] MEDS: multivitamin therapeutic Tablet 1 TAB PO (09:12)
[2024-12-14 09:15] VITALS: BP 119/72; PULSE 79; RESP 16; TEMP 36.7; O2SAT 97
--- NOTE | 2024-12-14 12:39 | PM.DCS ---
Discharge Providers Date of Admission: 12/13/24 09:28 Date of Discharge: December 14, 2024 Attending Provider at Admission: Julio Tang DO Attending Provider at Discharge: Julio Tang DO Consults: Hospitalist?Dr. Atkinson Primary Care Provider: Bassam Nash MD Diagnoses at Discharge Discharge Diagnosis 1. Status post total left knee replacement: 2. HTN (hypertension): 3. Atrial fibrillation/flutter: Reason for Visit Reason for Visit: M17.12 Brief History: Status post left total knee arthroplasty?Francisco robotic assisted Hospital Course Hospital Course Patient presented to the preoperative holding area with plan for left total knee arthroplasty after patient has been worked up in the outpatient setting for failed conservative treatment of left knee degenerative joint disease. Once cleared by anesthesia for surgery patient subsequently was taken back to the operative suite underwent anesthesia per anesthesia department and then subsequently underwent a left total knee arthroplasty. Procedure was performed without any complications patient was taken to PACU in stable condition patient recovered well in PACU and then was admitted to the floor postoperatively internal medicine was consulted and on board for medical management and assistance with care. Patient received appropriate PT/OT, postoperative antibiotics, postoperative TXA, pain control, postoperative DVT prophylaxis. Elevation and ice. Patient encouraged for knee range of motion allowed weightbearing as tolerated to the operative lower extremity. Dressing was changed as needed, labs were monitored daily. Patient recovered well postoperatively and worked well and progressed well with therapy. It was determined on postoperative day 1 the patient was stable for discharge from an orthopedic standpoint and medicine. Patient was comfortable with discharge and plan was discharged home. Patient received appropriate discharge instructions as well as pain medication and DVT prophylaxis postoperatively. Given appropriate instructions for dressing management. Patient will follow-up with Dr. Tang/orthopedics in the office in 2 weeks. All questions answered. Understand if there is any issues questions or concerns and contact the office. Physical Exam Narrative: Left knee examination: Dressing on in place, clean dry and intact. No evidence of saturation. Patient has normal postoperative swelling and tenderness to palpation to the knee. Compartments are soft compressible,'s calf soft and nontender. Sensations intact to light touch distally. Distal pulses are palpable. Patient is able to wiggle toes as well as plantarflex and dorsiflex ankle. Urinary Catheter Management: Arciniega: Cath Placed During This Visit: yes, but has since been removed by the nurse Reason for Continuing Indwelling Catheter: Decision to DC Catheter Urinary Catheter Date of Insertion: 12/13/24 Urinary Catheter Time of Insertion: 07:22 Date Urinary Catheter Removed: 12/13/24 Time Urinary Catheter Discontinued: 22:50 Discharge Data Studies Completed and Pending Completed Studies During Hospitalization Category Date Time Status XR knee LT 1-2V [id number] Routine Exams 12/13/24 08:50 Completed Pending at discharge Category Date Time Status Basic Metabolic Panel AM LABS Lab 12/15/24 04:00 Ordered Basic Metabolic Panel AM LABS Lab 12/16/24 04:00 Ordered Complete Blood Count w/Auto AM LABS Lab 12/15/24 04:00 Ordered Complete Blood Count w/Auto AM LABS Lab 12/16/24 04:00 Ordered Radiology Impressions Knee X-Ray 12/13/24 08:50 IMPRESSION: Cemented left total knee arthroplasty. Laboratory Results WBC 10.36 10^3/uL (3.29-11.43) 12/14/24 04:38 RBC 4.04 10^6/uL (3.85-5.65) 12/14/24 04:38 Hgb 11.60 g/dL (11.27-16.99) 12/14/24 04:38 Hct 35.4 % (36-47) L 12/14/24 04:38 MCV 87.6 fl (85-98) 12/14/24 04:38 MCH 28.7 pg (27-33) 12/14/24 04:38 MCHC 32.8 g/dL (30-55) 12/14/24 04:38 RDW 13.6 % (12.1-15.1) 12/14/24 04:38 Plt Count 228 10^3/cmm (157-399) 12/14/24 04:38 MPV 8.9 fL (7.4-10.4) 12/14/24 04:38 Neut % (Auto) 70.5 % 12/14/24 04:38 Lymph % (Auto) 20.5 % 12/14/24 04:38 [place] % (Auto) 8.2 % 12/14/24 04:38 Eos % (Auto) 0.3 % 12/14/24 04:38 Baso % (Auto) 0.2 % 12/14/24 04:38 Neut # (Auto) 7.31 10^3/uL (1.8-7.7) 12/14/24 04:38 Lymph # (Auto) 2.1 10^3/uL (0.8-4.8) 12/14/24 04:38 [place] # (Auto) 0.9 10^3/uL (0.2-0.9) 12/14/24 04:38 Eos # (Auto) 0.0 10^3/uL (0.0-0.8) 12/14/24 04:38 Baso # (Auto) 0.0 10^3/uL (0.0-0.1) 12/14/24 04:38 Nucleated RBC % (auto) 0 % 12/14/24 04:38 Nucleated RBCs # 0.0 /100WBC 12/14/24 04:38 Sodium 138 mmol/L (136-145) 12/14/24 04:38 Potassium 4.3 mmol/L (3.5-5.1) 12/14/24 04:38 Chloride 103 mmol/L (98-107) 12/14/24 04:38 Carbon Dioxide 25 mmol/L (22-29) 12/14/24 04:38 Anion Gap 14.3 (5-19) 12/14/24 04:38 BUN 11 mg/dL (8-23) 12/14/24 04:38 Creatinine 0.6 mg/dL (0.5-0.9) 12/14/24 04:38 GFR Calculation Not Reportable 12/14/24 04:38 Glucose 144 mg/dL (65-115) H 12/14/24 04:38 Calculated Osmolality 288 mOsm/kg (285-295) 12/14/24 04:38 Calcium 8.6 mg/dL (8.5-10.5) 12/14/24 04:38 Blood Type O Positive 12/13/24 06:20 Rho(D) Type Rh positive 12/13/24 06:20 Antibody Screen Negative 12/13/24 06:20 Vitals Last Vital Signs Temp 98.0 F 12/14/24 09:15 Pulse 79 12/14/24 09:15 Resp 16 12/14/24 09:15 BP 119/72 12/14/24 09:15 Pulse Ox 97 12/14/24 09:15 O2 Del Method Room Air 12/14/24 09:15 Discharge Plan Discharge Patient Disposition: Home Health Service Condition: Stable Prescriptions: New oxycodone 5 mg tablet 5 mg PO Q6H PRN (Reason: pain postop) 7 Days Qty: 28 0RF Eliquis 2.5 mg tablet 2.5 mg PO BID 14 Days Qty: 28 0RF Continued (DME) night splint See Rx Instructions .Route .MEDSUPPLY Qty: 1 0RF Rx Instructions: As directed acetaminophen 500 mg Tablet 500 mg PO BEDTIME PRN (Reason: Pain) metoprolol succinate 50 mg tablet extended release 24 hr 50 mg PO QPM Drug Room Operator OK for DC: Hospitalist Discharge Order = DC NOW: Discharge Order (Routine); Ordered 12/14/24 Ordered By: Julio Tang Referrals: [facility] ([facility]) [Outside] Bassam Nash MD [Primary Care Provider, [facility]] - 4-7 days Yobani Tang PA [Physician Tape Cutter, Orthopedics] - 12/28/24 2:00 pm Discharge Diet: Cardiac Discharge Activity: Limit activity as instructed and As per PT/OT instructions Patient Instructions: Acute Wound Care (DC), Precautions after Total Joint Replacement Surgery (DC), Opioid Safety (DC), Total Knee Replacement (DC), OB Discharge Report, OB Food/Drug Interaction Guide, Opioid Safety, Post Anesthesia Care, Patient Portal & Loki Instructions Activity Restrictions/Additional Instructions: Ortho DC instructions Keep incisions clean dry and intact, leave Silverlon bandage dressings on in place for 7 days after that may rinse incisions with warm soapy water pat dry and redress with a dry dressing. Patient may weight-bear as tolerate to the operative extremity Utilize walker as needed Encourage knee range of motion Ice and elevate as needed for pain and swelling Take pain medication as prescribed Take antinausea medication as needed Pain medication can cause constipation. take [id number] stool softeners and or MiraLAX. Take prescribed Eliquis twice daily for the next 14 days for blood clot prevention May supplement for pain with Tylenol [id number]-[id number] as needed(1000 mg every 8 hours-do not exceed more than 3000mg in 24-hour period) No baths or soaks Follow-up in the orthopedic office in 2 weeks Contact the office for any questions or concerns Follow-up with your primary doctor for reassessment after left knee replacement. Discussed, please revisit anticoagulation for stroke risk prophylaxis for history of A-fib with stroke risks including hypertension and age. Seek medical attention in case of any worsening or new concerning symptoms. Discharge Attestations Time Spent in Discharge Care*: less than 30 min Quality Metrics Clinical Quality Measures [ No reported AMI, CVA or VTE this stay] Coding Level of Care Code Acute Code for Chg Fwd Diagnoses Status post total left knee replacement Z96.652 HTN (hypertension) I10 Atrial fibrillation/flutter I48.91; I48.92
[2024-12-14 13:15] VITALS: BP 158/81; PULSE 69; RESP 16; TEMP 36.7; O2SAT 95
== END 2024-12-14 13:20 | disposition home health service (06) ==
LOC: OBGYN 09:28
PROVIDERS: Physician Assistant; Admitting Provider Student in an Organized Health Care Education/Training Program; PCP Family Medicine; Visit Provider Student in an Organized Health Care Education/Training Program
PROC: 8E0Y0CZ Robotic Assisted Procedure of Lower Extremity, Open Approach (ICD-10-PCS; CPT 27447; principal; 2024-12-13 07:00)
DX: M17.12 Unilateral primary osteoarthritis, left knee (principal); I10 Essential (primary) hypertension; I48.91 Unspecified atrial fibrillation; I48.92 Unspecified atrial flutter
CPT/HCPCS: 27447; 20985; 36415; 51702; 73560; 80048; 85025; 86850; 86900; 97110; 97116; 97161; 97165; A4216; C1713; C1776; G0378; J0131; J0169; J0690; J1100; J1885; J2250; J2371; J2704; J2795; J7030; J9999; L8699

== ENCOUNTER → 2024-12-28 14:01 | Outpatient (BNVA) | payer MEDICARE, SELFPAY | PROVIDERS: PCP Family Medicine; Visit Provider Physician Assistant | DX: Z98.890 Other specified postprocedural states (principal); Z96.652 Presence of left artificial knee joint | CPT/HCPCS: 73560; 73565; 99024 ==

== ENCOUNTER 2025-01-03 11:55 | Outpatient (RCR) | payer MEDICARE, SELFPAY | END 2025-01-25 23:59 | disposition home or self-care (01) | LOC: SPT 11:55 | PROVIDERS: Visit Provider Physician Assistant | DX: Z47.1 Aftercare following joint replacement surgery (principal); Z96.652 Presence of left artificial knee joint | CPT/HCPCS: 97110; 97140; 97161 ==

== ENCOUNTER → 2025-01-11 13:15 | Outpatient (BNVA) | payer MEDICARE, SELFPAY | PROVIDERS: PCP Family Medicine; Visit Provider Student in an Organized Health Care Education/Training Program | DX: Z96.652 Presence of left artificial knee joint (principal); Z01.89 Encounter for other specified special examinations | CPT/HCPCS: 73560; 73565 ==

== ENCOUNTER 2025-01-11 14:12 | Outpatient (CLI) | payer MEDICARE, SELFPAY ==
--- NOTE | 2025-01-11 14:30 | USCV_ITS ---
Lily Díaz Age: 74 Gender: F : 1950 Exam Date: 01/11/2025 14:41 Ordering Phys: Julio Tang DO Technologist: RAQUEL [place] [facility] [place]: LEFT LEG PAIN HISTORY: Lower extremity pain. PROCEDURES: Venous duplex imaging was performed in only the left lower extremity. The following venous structures were evaluated: common femoral vein, profunda vein, proximal portion of the greater saphenous vein, superficial femoral vein, and the popliteal vein. In addition, the posterior tibial and peroneal trunk were evaluated. FINDINGS: Normal 2-D Doppler and augmentation and compressibility throughout the lower extremity venous structures. Additional imaging through the proximal calf veins also reveals no thrombus. Limited evaluation of the greater saphenous vein is patent with no thrombus. Left inguinal lymph node. CONCLUSIONS No DVT left lower extremity. Dr. Shereen Plunkett DO (Electronically Signed) Final Date: 11 January 2025 15:54 S
== END 2025-01-11 14:13 | disposition home or self-care (01) ==
LOC: RAD 14:15
PROVIDERS: PCP Family Medicine; Visit Provider Student in an Organized Health Care Education/Training Program
DX: M79.662 Pain in left lower leg (principal)
CPT/HCPCS: 93971

== ENCOUNTER 2025-01-26 05:00 | Outpatient (RCR) | payer MEDICARE, SELFPAY | END 2025-02-04 23:59 | disposition home or self-care (01) | LOC: SPT 05:00 | PROVIDERS: PCP Family Medicine; Visit Provider Physician Assistant | DX: Z47.1 Aftercare following joint replacement surgery (principal); Z96.652 Presence of left artificial knee joint | CPT/HCPCS: 97110 ==

== ENCOUNTER 2025-02-04 08:34 | Emergency (ER) | payer MEDICARE, SELFPAY ==
--- NOTE | 2025-02-04 08:21 | XRR_ITS ---
PROCEDURE INFORMATION: Exam: XR Chest Exam date and time: 02/04/2025 8:46 AM Age: 75 years old Clinical indication: Device placement; Ett placement (vent status); Additional info: Ett confirmation; PT intubated prior to arrival by EMS TECHNIQUE: Imaging protocol: Radiologic exam of the chest. Views: 1 view. COMPARISON: CR XR chest 1V portable [id number] 06/07/2021 1:45 PM FINDINGS: Tubes, catheters and devices: Tip of the new ETT is 4.5 cm above the medina. New NG tube terminates in the body of the stomach. New cutaneous pacer leads projecting over the heart. Lungs: New mild, diffuse bilateral pulmonary edema and/or pneumonitis. Otherwise, unremarkable. Pleural spaces: Unremarkable. No pleural effusion. No pneumothorax. Heart/Mediastinum: Unremarkable. No cardiomegaly. Bones/joints: Unremarkable. XR/XR chest 1V portable [id number] IMPRESSION: 1. Tip of the new ETT is 4.5 cm above the medina. 2. New mild, diffuse bilateral pulmonary edema and/or pneumonitis.
--- NOTE | 2025-02-04 08:23 | CT_ITS ---
WS: [id number] CT HEAD TECHNIQUE: Noncontrast CT of the head obtained from the skullbase to the vertex. CLINICAL INFORMATION: Symptoms of acute stroke COMPARISON: None. DLP: [address] scans [address] [facility] use at least one of these dose optimization techniques: automated exposure control; mA and/or kV adjustment per patient size (includes targeted exams where dose is matched to clinical indication); or iterative reconstruction. FINDINGS: Extensive posterior fossa subarachnoid and intraparenchymal hemorrhage. Focal intraparenchymal cerebellar hematoma measuring 2.5 x 2.6 cm dorsally. Hemorrhagic blood products along the cerebellar folia extending into the fourth ventricle. Subdural blood along the tentorium and interhemispheric fissure extending to the vertex. Subarachnoid blood products extending along the RIGHT suprasellar cistern and sylvian fissure. Moderate developing hydrocephalus with effacement of the third ventricle and bowing of the temporal horns. Supratentorial mass effect with partial effacement of suprasellar cistern with early uncal herniation. Mass effect on the midbrain with effacement of the ambient cisterns. Effacement of the prepontine cistern effacement of the fourth ventricle. Crowding at the foramen magnum. Paranasal sinuses and mastoid air cells are well aerated. Consider hypertension, trauma, anticoagulation therapy trauma amyloid angiopathy or possibly ruptured aneurysm CT/CT head thrombolytic [id number] IMPRESSION: 1. Extensive posterior fossa, subarachnoid and intraparenchymal and subdural h emorrhage. Intraparenchymal hematoma in the cerebellum with blood products exte nding along the tentorium. More focal dorsal cerebellar intraparenchymal hemato ma measures 2.6 x 2.5 cm. 2. Subdural blood products extending along the falx to the vertex with subarac hnoid hemorrhage along the RIGHT suprasellar cistern and sylvian fissure. 3. Developing moderate obstructive hydrocephalus with bowing of the third vent ricle and temporal horns. 4. Partial effacement of the suprasellar cistern with early uncal herniation. Effacement of the ambient cisterns and interpeduncular cistern. Effacement of t he fourth ventricle with crowding at the foramen magnum with developing tonsill ar herniation. 5. Mass effect on the midbrain with effacement of prepontine cistern. Notified Juan M Rabago DO at 02/04/2025 8:58 AM.
--- OUTSIDE RECORDS SUMMARY | 2025-02-04 08:38 | XMS_ITS | Clinical Summary ---
Author Organization [facility] Address [address] [place] [address] Care Team Providers Care Grinder And Plater Name Role Phone Unavailable Primary Care Provider Unavailabl e Allergies No known active allergies Medications hydrochlorothiaz dashawn 25 mg tablet Take 1 Tablet (25 mg) by mouth daily. 30 Tablet 11 09/14/2015 Active Active Problems Problem Noted Date Diagnosed Date Elevated BP - Mild and Intermittent 06/22/2015 Family History Medical History Relation Name Comments Healthy Brother 1 Healthy Brother 2 Healthy Brother 3 Heart Disease Father Other Father AAA age 90 Healthy Mother Other Mother A Fib Thyroid Disease Mother Relation Name Status Comments Brother 1 Alive Brother 2 Alive Brother 3 Alive Father Mother Alive Social History Tobacco Use Types Packs/Day Years Used Date Smoking Tobacco: Never Alcohol Use Standard Drinks/Week Comments Yes 1 (1 standard drink = 0.6 oz pur e alcohol) per week Comments No Sex and Gender Information Value Date Recorded Sex Assigned at Not on file Legal Sex Female 10:48 AM STUMP BLOWER Gender Identity Not on file Sexual Orientation Not on file Last Filed Vital Signs Vital Sign Reading Time Taken Comments Blood Pressure 144/88 09/14/2015 10:55 AM CDT Pulse 77 09/14/2015 10:55 AM CDT Temperature 37.2 C (99 F) 09/14/2015 10:55 AM CDT Respiratory Rate - - Oxygen Saturation 98% 09/14/2015 10:55 AM CDT Inhaled Oxygen Concentration - - Weight 74.1 kg (163 lb 6.4 oz) 09/14/2015 10:55 AM CDT Height 167.6 cm (5' 6 ) 09/14/2015 10:55 AM CDT Body Mass Index 26.37 09/14/2015 10:55 AM CDT Plan of Treatment Health Maintenance Due Date Last Done Comments DTAP/TDAP/TD VACCINES (1 - Tdap) 01/30/1971 FIT-DNA Q 3 years 01/30/1997 FIT/FOBT Q 1 year 01/30/1997 Flex Sig/CT Colonography Q 5 years 01/30/1997 PNEUMOCOCCAL VACCINE 50+ YEA RS (1 of 1 - PCV) 01/30/2002 ZOSTER VACCINE (1 of 2) 01/30/2002 COLORECTAL SCREENING 05/16/2009 05/16/1999 (Previously completed) Colorectal Cancer Screening 05/16/2009 BREAST CANCER SCREENING 09/12/2011 09/12/19 11 (Previously completed) OSTEOPOROSIS SCREENING 01/30/2017 INFLUENZA VACCINE (#1) 2024 RSV VACCINE (60+ or ) (1 - 1-dose 75+ series) 01/30/2027
--- OUTSIDE RECORDS SUMMARY | 2025-02-04 08:39 | XMS_ITS | Clinical Summary ---
Author Organization [facility] Address [address] Attn: Epic Prelude ADT WILLY WRIGHT [address] Care Team Providers Care Business Analyst Ecommerce Name Role Phone Unavailable Primary Care Provider Unavailabl e Allergies No known active allergies Medications hydroCHLOROthiaz dashawn 25 mg tablet Take 1 Tablet [...] drink = 0.6 oz pur e alcohol) Comments Unknown Sex and Gender Information Value Date Recorded Sex Assigned at Not on file Legal Sex Female 6:53 AM DOPE MIXER Gender Identity Not on file Sexual Orientation Not on file Last Filed Vital Signs Vital Sign Reading Time Taken Comments Blood Pressure 144/88 09/14/2015 10:55 AM CDT Pulse 77 09/14/2015 10:55 AM CDT Temperature 37.2 C (99 F) 09/14/2015 10:55 AM CDT Respiratory Rate - - Oxygen Saturation - - Inhaled Oxygen Concentration - - Weight 74.1 kg (163 lb 6.4 oz) 09/14/2015 10:55 AM CDT Height 167.6 cm (5' 6 ) 09/14/2015 10:55 AM CDT Body Mass Index 26.37 09/14/2015 10:55 AM CDT Plan of Treatment Health Maintenance Due Date Last Done Comments DTAP/TDAP/TD VACCINES (1 - Tdap) 01/30/1971 BREAST CANCER SCREENING 1992 COLORECTAL SCREENING 01/30/1997 Colorectal Cancer Screening 01/30/1997 FIT-DNA Q 3 years 01/30/1997 FIT/FOBT Q 1 year 01/30/1997 Flex Sig/CT Colonography Q 5 years 01/30/1997 PNEUMOCOCCAL VACCINE 50+ YEARS (1 of 1 - PCV) 01/31/20 02 ZOSTER VACCINE (1 of 2) 01/30/2002 OSTEOPOROSIS SCREENING 01/30/2017 INFLUENZA VACCINE (#1) 2024 RSV VACCINE (60+ or ) (1 - 1-dose 75+ series) 01/30/2027
--- OUTSIDE RECORDS SUMMARY | 2025-02-04 08:39 | XMS_ITS | Data Portability ---
Author Organization WILLY Heron Chavarria [facility], JusticeLKarmen, [facility] Address [address] [address] Care Team Providers Care Php Engineer Name Role Phone HUGO NASH Primary Care Provider [phone] Assessment Encounter Date Assessment Date Assessment LastModified by Organization Details LastModified Time 12/28/2024 12/28/2024 f/u as needed [email or web address] Not available 12/28/2024 13:03:14 Plan of Treatment Reminders Order Date Submit Date Provider Last Modified By Organization Details Last Modified Time Details Appointments None recorded. Lab CMP, serum or plasma 2023 025 [facility], [address] [facility], [place], [address], 5 11:23:37 CBC 2023 025 [facility], [address] [facility], [facility], [place], [address], 5 11:01:17 Referral machine repairer maintenance referral 2024 025 [email or web address] 2 Ayan GONZALEZM, [address] [place], [address], 5 10:09:[address] referral 2023 024 [email or web address] 2 [facility], [address] [place], [address], 4 08:40:57 orthopedic surgeon referral 2023 024 [email or web address] [facility], [address] [place], [address], 4 12:46:21 Procedures injection/a spiration large joint/bursa (PROC) 2023 024 [email or web address] [facility], [address] [facility], [facility] [address], [place], [address], 4 20:11:24 Surgeries None recorded. Imaging MAMMO, screening, digital, bilateral [address] (Scheduling Orders), [address] [place], [address], 5 17:58:32 MRI, knee, w/o contrast [address] (Scheduling Orders), [address] [place], [address], 4 17:52:24 XR, knee, weightbeari ng [address] ([facility]), [address] [place], [address], 4 19:54:33 Medication Orders None recorded. Patient TargetsNo targets recorded. Patient Instructions Encounter Date Encounter Id Patient Instructions Last Modified By Organization Details Last Modified Time 08/13/2023 [id number] pain likely from effusion; xray now to evaluate level of arthritis exam fits wit meniscus tear, but not injury; will try shot first and if doesn't improve then will get mri right knee cleaned medially and anteriorly with alcohol; lidocaine with betametjasone injected without complication [email or web address] Not available 08/13/2023 11:58:51 09/03/2023 [id number] right knee still full of fluid despite injection suspect torn meniscus; will order MRI mother with pancreatic cancer; she lives in [place] and she will be visiting this week [email or web address] Not available 09/03/2023 11:26:21 01/26/2024 [id number] s/p knee replacement with Dr. Zee; doing well labs done at hospital refill metoprolol not checking lipids and she will not take statin [email or web address] Not available 01/26/2024 10:16:11 Reason for Referral Orthopedic Surgeon Referral for Effusion of joint of right knee Referring Physician: Hermes Cortes, Internal Medicine, Encounter Date: 09/03/2023 Jet Blade Polisher Referral for S kin lesion Referring Physician: Hermes Cortes, Internal Medicine, Encounter Date: 01/26/2024 Membership Correspondent Referral for Plan tar fasciitis of left foot Referring Physician: Hugo Nash, Family Medicine, Encounter Date: 07/26/2024 Results Created Date Observation Date Name Description Value Unit Range Abnormal Flag Note LastModifiedBy Organization Detail LastModifiedTime 07/10/1907/09/2024 CBC WBC 5.1 x10 4.0-10 .5 Not Available [facility] [address] [facility] [address], [place], [address], 07/09/2024 11:01:17 07/10/19 25 07/09/2024 CBC RBC 4.41 x10 3.50-5 .50 Not Available [facility] [address] [facility], [place], [address], 07/09/2024 11:01:17 07/10/19 25 07/09/2024 CBC HGB 13.8 g/dL 12.0-1 6.0 Not Available [facility] [address] [facility] [address], [place], [address], 07/09/2024 11:01:17 07/10/19 25 07/09/2024 CBC HCT 37.9 % 37.0-4 7.0 Not Available [facility] [address] [facility], [place], [address], 07/09/2024 11:01:17 07/10/19 25 07/09/2024 CBC MCV 86.0 fL 80.0-9 9.9 Not Available [facility] [address] [facility], [place], [address], 07/09/2024 11:01:17 07/10/19 25 07/09/2024 CBC MCH 31.4 pg 27.0-3 2.0 Not Available [facility] [address] [facility], [place], [address], 07/09/2024 11:01:17 07/10/19 25 07/09/2024 CBC MCHC 36.5 g/dL 32.0-3 6.0 high Not Available [facility] [address] [facility], [place], [address], 07/09/2024 11:01:17 07/10/19 25 07/09/2024 CBC RDW 14.3 % 11.5-1 4.5 Not Available [facility] [address] [facility], [place], [address], 07/09/2024 11:01:17 07/10/19 25 07/09/2024 CBC plt 219.2 x10 140.0- 451.0 Not Available [facility] [address] [facility], [place], [address], 07/09/2024 11:01:17 07/10/19 25 07/09/2024 CBC lymphocytes % 42.3 % 20.0-5 0.0 Not Available [facility] [address] [facility], [place], [address], 07/09/2024 11:01:17 07/10/19 25 07/09/2024 CBC granulcytes % 47.3 % 30.0-7 0.0 Not Available [facility] [address] [facility], [place], [address], 07/09/2024 11:01:17 07/10/19 25 07/09/2024 CBC monocytes % 8.5 % 2.0-16 .0 Not Available [facility] [address] [facility], [place], [address], 07/09/2024 11:01:17 07/10/19 25 07/09/2024 CBC granulcytes# 2.4 x10 Not Jacquelin ilable [facility] [address] [facility], [place], [address], 07/09/2024 11:01:17 07/10/19 25 07/09/2024 CBC lymphocytes # 2.2 x10 Not Available [facility] [address] [facility], [place], [address], 07/09/2024 11:01:17 07/10/19 25 07/09/2024 CBC monocytes # 0.4 x10 Not Avai lable [facility] [address] [facility], [place], [address], 07/09/2024 11:01:17 07/10/19 25 07/09/2024 CMP (FEMA LE) glucose 113.0 mg/dL 60.0-9 9.0 high Not Available [facility] [address] [facility], [place], [address], 07/09/2024 11:23:37 07/10/19 25 07/09/2024 CMP (FEMA LE) BUN (blood urea nitrogen) 12.0 mg/dL 10.0-2 6.0 Not Available [facility] [address] [facility], [place], [address], 07/09/2024 11:23:37 07/10/19 25 07/09/2024 CMP (FEMA LE) creatinine (serum) 0.7 mg/dL 0.4-1. 5 Not Available [facility] [address] [facility], [place], [address], 07/09/2024 11:23:37 07/10/19 25 07/09/2024 CMP (FEMA LE) BUN/creatini ne ratio 17.14 ratio Not Available [facility] [address] [facility], [place], [address], 07/09/2024 11:23:37 07/10/19 25 07/09/2024 CMP (FEMA LE) eGFR calculated 87.[address] [facility] [address] [address], [place], [address], 07/09/2024 11:23:37 07/10/19 25 07/09/2024 CMP (FEMA LE) total protein 7.4 g/dL 6.0-8. 5 Not Available [facility] [address] [facility], [place], [address], 07/09/2024 11:23:37 07/10/19 25 07/09/2024 CMP (FEMA LE) total bilirubin 0.8 mg/dL 0.2-1. 3 Not Available [facility] [address] [facility], [place], [address], 07/09/2024 11:23:37 07/10/19 25 07/09/2024 CMP (FEMA LE) albumin 4.4 g/dL 3.5-5. 5 Not Available [facility] [address] [facility], [place], [address], 07/09/2024 11:23:37 07/10/19 25 07/09/2024 CMP (FEMA LE) globulin 3.0 calc Not Available [facility] [address] [facility], [place], [address], 07/09/2024 11:23:37 07/10/19 25 07/09/2024 CMP (FEMA LE) AST (SGOT) 20.0 U/L 0.0-46 .0 Not Available [facility] [address] [facility], [place], [address], 07/09/2024 11:23:37 07/10/19 25 07/09/2024 CMP (FEMA LE) altv (SGPT) 15.0 U/L 13.0-6 9.0 normal Not Available [facility] [address] [facility] [address], [place], [address], 07/09/2024 11:23:37 07/10/19 25 07/09/2024 CMP (FEMA LE) A/G ratio 1.5 ratio Not Available [facility] [address] [facility] [address], [place], [address], 07/09/2024 11:23:37 07/10/19 25 07/09/2024 CMP (FEMA LE) ALP phos 62.0 U/L 30.0-1 40.0 normal Not Available [facility] [address] [facility] [address], [place], [address], 07/09/2024 11:23:37 07/10/19 25 07/09/2024 CMP (FEMA LE) calcium 9.3 mg/dL 8.4-10 .5 Not Available [facility] [address] [facility] [address], [place], [address], 07/09/2024 11:23:37 07/10/19 25 07/09/2024 CMP (FEMA LE) sodium 140.0 mmol/ L 136.0- 145.0 Not Available [facility] [address] [facility] [address], [place], [address], 07/09/2024 11:23:37 07/10/19 25 07/09/2024 CMP (FEMA LE) potassium 4.4 mmol/ L 3.5-5. 1 Not Available [facility] [address] [facility] [address], [place], [address], 07/09/2024 11:23:37 07/10/19 25 07/09/2024 CMP (FEMA LE) chloride 104.0 mmol/ L 98.0-1 10.0 normal Not Available [facility] [address] [facility] [address], [place], [address], 07/09/2024 11:23:37 07/10/19 25 07/09/2024 CMP (FEMA LE) C02 29.0 mmol/ L 22.0-3 1.0 Not Available [facility] [address] [facility] [address], [place], [address], 07/09/2024 11:23:37 07/10/19 25 07/09/2024 CMP (FEMA LE) anion gap 7.0 calc Not Available [facility] [address] [facility] [address], [place], [address], 07/09/2024 11:23:37 07/10/19 25 07/09/2024 CMP (FEMA LE) osmolality 289.7 calc Not Available [facility] [address] [facility] [address], [place], [address], 07/09/2024 11:23:37 08/14/19 24 08/13/2023 XR, knee, weigh tbear ing No observ ation record ed. [email or web address] [facility] [address] [facility], [place], [address], 08/25/2023 14:29:23 10/01/19 24 10/01/2023 MRI, knee, w/o contr ast No observ ation record ed. [email or web address] [facility] [address] [place], [address], 10/06/2023 16:32:03 07/27/19 25 12/28/2020 colon oscop y proce dure (PROC ) No observ ation record ed. [email or web address] Not Available 07/26 16:59:45 Result Notes None recorded. Problems Name Problem SNOMED Code Status Onset Date Resolution Date Notes Provider Name and Address Organization Details Recorded Time Benign essential hypertensi on 8091749 Active 2021 Hypertensi on; 04/01/2022 1:41PM by Melinda Brown RN, Office Visit; Promoted; acuity set as *; Lucila olmedo [facility], IsidroLJusticeCJustice 23:55:39 Paroxysmal atrial fibrillati on 764155758 Active 2024 [facility]aboris [facility] 23:55:53 Problem Notes None recorded. Procedures Surgical History Date Name Laterality Status Provider Name and Address Organization Details Recorded Time 12/14/19 25 Total knee arthroplasty completed [facility] NI [facility], IsidroLKarmen 12/20/2024 16:11:03 10/27/19 24 total knee replacement completed [facility], LJusticeL.CJustice 12/28/2024 12:43:09 12/29/19 21 colonoscopy completed [facility], L.L.CJustice 07/26/2024 09:22:04 04/28/19 21 hemorrhoidectomy completed [facility], LJusticeLJusticeCJustice 07/26/2024 09:49:47 04/28/19 19 repair of meniscus completed [facility] Ariel [facility], IsidroLJusticeCJustice 07/26/2024 09:50:32 04/28/19 16 screening for malignant neoplasm [facility] cervix [facility] 07/26/2024 09:49:02 04/28/18 79 ligation of fallopian tube completed [facility], [place] 07/26/2024 09:49:33 04/28/18 77 ligation of fallopian tube completed [facility], [place] 07/26/2024 09:49:26 04/28/18 60 tonsillectomy completed [facility], [place] 07/26/2024 09:51:06 Imaging Results None recorded. Procedure Notes None recorded. Medical Equipment None Reported. Allergies No known drug allergies Medications Name Sig Start Date Stop Date Status Note LastModified by Organization Details LastModified Time amoxicill in 500 mg capsule TAKE FOUR CAPSULES BY MOUTH ONE HOUR BEFORE APPOINTM ENT active Not Available Not Available No t Available metoprolo l succinate ER 50 mg tablet,ex tended release 24 hr Take 1 tablet every day by oral route for 90 days. 2024 active Not Available Not Available Not Avai lable meloxicam 7.5 mg tablet TAKE 1 TO 2 TABLETS BY MOUTH ONCE DAILY 08/10 completed Not Available Not Available Not Available erythromy iban 5 mg/gram (0.5 %) eye ointment APPLY 1 CM RIBBON INTO THE LOWER CONJUNCT IVAL SAC(S) IN THE AFFECTED EYE(S) BY OPHTHALM IC ROUTE 3 TIMES PER DAY 08/10 completed Not Available Not Available Not Available lidocaine 5 % topical patch APPLY 1 PATCH BY TOPICAL ROUTE ONCE DAILY (MAY WEAR UP TO 12HOURS. ) 01/25 completed Not Available Not Available Not Available ondansetr on 4 mg disintegr ating tablet DISSOLVE ONE TABLET ON top of THE TONGUE EVERY 8 HOURS NEEDED FOR NAUSEA AND vomiting FOR 3 DAYS 12/28 completed Not Available Not Available Not Available doxycycli ne hyclate 100 mg tablet TAKE 1 TABLET BY MOUTH TWICE DAILY FOR 14 DAYS 01/25 completed Not Available Not Available Not Available oxycodone 5 mg tablet TAKE ONE TABLET BY MOUTH EVERY 6 HOURS as needed for postop pain FOR 7 DAYS active Not Available Not Available No t Available neomycin 3.5 mg/g-poly myxin B 10,000 unit/g-de xameth 0.1 % eye oint APPLY A SMALL AMOUNT ON AFFECTED EYELID TWICE DAILY FOR 14 DAYS 07/26 completed Not Available Not Available Not Available meloxicam daily 08/10 completed Recorded 04/01/20 1:52PM by Hermes Cortes DO, Office Visit; Refill Quantity : 60; Tablet; Not Available Not Available Not Available aspirin daily 07/26 completed 0; Recorded 04/01/20 1:41PM by Sara Brown RN, Office Visit; Not Available Not Available Not Available Colace daily 12/28 completed Not Available Not Available Not Available metoprolo l succinate daily 01/25 completed dose increase ; Recorded 06/20/19 8:49AM by Hermes Cortes DO, Office Visit; Refill Quantity : 30; Tablet; Not Available Not Available Not Available Eliquis 2.5 mg tablet TAKE ONE TABLET BY MOUTH TWICE DAILY for TWO WEEKS 12/28 completed Not Available Not Available Not Available Voltaren Arthritis Pain 1 % topical gel APPLY 2 GRAMS TO THE AFFECTED AREA(S) BY TOPICAL ROUTE 4 TIMES PER DAY 07/26 completed Not Available Not Available Not Available Vitals Date Recorded Body height Body mass index (BMI) Body weight Body temperature Heart rate Oxygen saturation Oxygen saturation in Arterial blood by Pulse oximetry Systolic And Diastolic Provider Name and Address Organization Details Last Updated DateTime 5 167.64 cm 29.2 kg/m2 22493.2 2 g 97.7 [degF] 73 /min 98 % 98 % 158/98 mm[Hg] Lucila George [facility], L.L.CJustice 5 09:44:20 Date Recorded Body height Body mass index (BMI) Body weight Respiratory rate Heart rate Oxygen saturation Oxygen saturation in Arterial blood by Pulse oximetry Systolic And Diastolic Provider Name and Address Organization Details Last Updated DateTime 4 167.64 cm 28.6 kg/m2 45159.8 5 g 20 /min 94 /min 98 % 98 % 166/86 mm[Hg] MELINDA BROWN [facility] 4 11:31:02 Date Recorded Body height Respiratory rate Heart rate Oxygen saturation Oxygen saturation in Arterial blood by Pulse oximetry Systolic And Diastolic Provider Name and Address Organization Details Last Updated DateTime 4 167.64 cm 16 /min 96 /min 99 % 99 % 148/72 mm[Hg] MELINDA [facility] 4 11:15:27 Date Recorded Body height Body mass index (BMI) Body weight Body temperature Heart rate Oxygen saturation Oxygen saturation in Arterial blood by Pulse oximetry Systolic And Diastolic Provider Name and Address Organization Details Last Updated DateTime 5 167.64 cm 29.2 kg/m2 85349.2 2 g 97.5 [degF] 80 /min 95 % 95 % 138/84 mm[Hg] Lucila George [facility] 5 12:41:54 Date Recorded Body height Body mass index (BMI) Body weight Respiratory rate Heart rate Oxygen saturation Oxygen saturation in Arterial blood by Pulse oximetry Systolic And Diastolic Provider Name and Address Organization Details Last Updated DateTime 4 167.64 cm 29.5 kg/m2 50750.4 g 20 /min 75 /min 99 % 99 % 136/72 mm[Hg] [facility] 4 10:04:01 Social History None recorded. Functional Status Question Answer Note LastModified by Organizat ion Details LastModified Time Do you use any illicit or recreational drugs? No Information not available 07/26/2024 Do you or have you ever used any other forms of tobacco or nicotine? No Information not available 07/26/2024 What is your level of alcohol consumption? None Information not available 07/26/2024 Mental Status None recorded. Family History Relationship Description Onset Age of this Age Resolved Age Notes LastModified by Organization Details LastModified Time Father Hypertensive disorder Not available 2024 09:45:38 Father Glaucoma Not available 07/26/2024 09:45:48 Father Dementia Not available 07/26/2024 09:45:57 Father Aortic aneurysm Not available 2024 09:46:10 Mother Hypothyroidi sm Not available 2024 09:46:25 Mother Arthritis Not available 07/26/2024 09:46:37 Mother Mitral valve regurgitatio n Not available 2024 09:47:04 Mother Malignant neoplasm of pancreas Not available 2024 09:47:22 Mother Osteoporosis Not availa ble 07/26/2024 09:47:33 Medical History No medical history recorded. Gynecological HistoryNo gynecological history recorded. Obstetrics History GPAL:G 0 P 0 0 0 0 Immunizations Vaccine Type Date Status Note Provider Nam e and Address Organization Details Recorded Time Tdap 11/05/2021 completed Not Available [facility] 12/28/2024 12:34:50 Past Encounters Encounter ID Performer Location Encounter Start Date Encounter Closed Date Diagnosis/Indication Diagnosis SNOMED-CT Code Diagnosis ICD10 Code Diagnosis IMO Codes Diagnosis Note [id number] CELINE WOOD [facility] ([facility]) [address] [place] [phone] 05/05/2023 12:04:55 05/05/2023 12:59:37 Hordeolum externum of lower eyelid of left eye 2442155807 43591 H00.015 Start eye ointment three times daily today. Encouraged good hand hygiene. Can use warm compresses for comfort. If worsening condition or no improvemen t in 5-7 days, return for further evaluation . If severe eye pain occurs, go to ED. Patient verbalized understand ing. [id number] Hermes Cortes DO [facility] ([facility]) [address] [place] [address] 06/30/2023 10:00:43 06/30/2023 10:50:14 Benign essential hypertension 3488152 I10 Hordeolum externum of lower eyelid of left eye 5775626431 92402 H00.790 [id number] MARLENE PAIZ [facility] ([facility]) [address] [place] [address] 08/11/2023 11:37:22 08/11/2023 13:12:17 Pain of right knee joint 7590466660 55528 M25.561 Discussed use of voltaren gel and lidocaine patch. Continue to wear the Vasquez hose at night since that has helped your symptoms.I f pain is not resolving over next 5-7 days, then schedule appt with your PCP [id number] Hermes Cortes DO [facility] ([facility]) [address] [place] [address] 08/13/2023 11:12:30 08/13/2023 12:04:58 Effusion of joint of right knee 8571653103 90815 M25.988 [id number] Hermes Cortes DO [facility] ([facility]) [address] [place] [phone] 09/03/2023 11:04:40 09/03/2023 14:35:13 Effusion of joint of right knee 9428047603 55388 M25.475 [id number] Hermes Cortes DO [facility]) [address] [place] [address] 01/26/2024 09:54:47 01/26/2024 10:20:02 Benign essential hypertension 3524316 I10 Skin lesion 06095722 L98 .9 [id number] Hugo Nash MD [facility] ([facility]) [address] [place] [phone] 07/26/2024 09:26:04 07/26/2024 14:14:18 Paroxysmal atrial fibrillation 407963201 I48.0 very long discussion regarding her erroneous 2 score chads2 vasc from her cardiology visit and recommenda tion against eliquis at that time. she is actually a 3. we discussed the risks nd benefits of blood thinning at length and risk of not taking it stroke primarily. she understand s but absolutely will accept that risk and NOT take anticoagul ation despite odds being higher of stroke than significan t bleeding. i do understand the risk I'm just not going to do it. 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 Benign ess ential hypertension 8588853 I10 Screening mammography 24 573256 Z12.31 Plantar fa sciitis of left foot 2297896287 6075058 M72.2 heel cup better arch support continue exercises. never go barefootic e and rest the heel Screening for malignant neoplasm of breast 739606592 Z12.39 Hyperglycemia 23684815 R 73.9 we discussed diet control versus diet control with metformin as well [id number] Hugo Nash MD [facility] ([facility]) [address] [place] [address] 12/28/2024 12:34:26 12/30/2024 13:56:06 History of total knee arthroplasty 6530277774 105 Z96.652 05979636 Arthritis of left knee joint 8156435975 344204 M17.12 [id number] Health Concerns Section Related Observation LastModified by Organization Detai ls LastModified Time None Recorded Concern Status LastModified by Organization Details LastModified Time None Recorded Advance Directives Directive None Recorded Payers Insurance Date Sequence Insurance Name Policy Number Policy Piña Covered Member ID Piña Member ID Guarantor Name 12/28/2024 [place] - [facility] (MEDICARE) Lily W Arjun [id number] Lily W Arjun 12/28/2024 1 [place] Lily W Arjun [id number] Lily W Arjun 12/28/2024 2 [employer] (MEDICARE SUPPLEMENT) Lily W Arjun [id number] Lily W Arjun Notes Date Note Type Note Provider Name and Address Organization Details Recorded Time 4 text/html Joint PainReported by PatientHPIFor quality, patient reportssharp. For severity, patient reportsdriving impairment,worsening, andinterferes with sleep. For location, patient reportsright knee. For duration, patient reportspresent <1 month. For timing, patient reportsdate of onset:. For alleviating factors, patient reportsmedications: acetamenophen ibuprofen. For aggravating factors, patient reportstwisting.ROS as noted in the HPI Hermes Cortes DO [address] [place], [address], [facility], [place] 08/13/2023 12:03:27 4 text/html Joint PainReported by PatientHPIFor quality, patient reportssharp. For severity, patient reportsdriving impairment,worsening, andinterferes with sleep. For location, patient reportsright knee. For duration, patient reportspresent <1 month. For timing, patient reportsdate of onset:. For alleviating factors, patient reportsmedications: acetamenophen ibuprofen. For aggravating factors, patient reportstwisting.ROS as noted in the [facility] Hermes Cortes [address], [address], [facility] 09/03/2023 11:33:24 4 text/html HypertensionReported by PatientHPIFor severity, patient reportsgrade 1 (130-139/80-89). For duration, patient reportshas noted for years. For alleviating factors, patient reportsmedication.ROS as noted in the HPI Hermes Cortes DO [address] [place] [address], [phone], [facility] 01/26/2024 10:18:40 5 text/html HypertensionReported by PatientHPIFor duration, patient reportshas noted for years. For alleviating factors, patient reportsmedication. For severity, (118-146/68-90). Musculoskeletal PainReported by PatientHPIFor quality, patient reportssharpanddull. For location, patient reportsright foot (heel). For duration, patient reportspresent for 6-12 months (december 2023).ROS as noted in the [facility] Pt is due for a mammogram Hugo Nash MD [address] [place] [address], [id number], [facility] 07/26/2024 10:31:13 5 text/html Pt is here to follow up on her knee surgery. She had a left total knee replacement with Dr. Tagn on 12/13. She states she is not having any problems. She is weight bearing fully and able to ambulate without aides/assistance. she has her f/u with ortho today as well. so, i will let them remove her bandage which is not soiled or saturated. she is eating voiding stooling well. no fever or chills. no dysuria urgency or frequency. she is taking 1 tylenol and i oxycodone per day and is contemplating d/c of the oxycodone im almost there. Hugo Nash MD [address] [place] [address], [phone], [facility], [place] 12/28/2024 13:03:32 OBGyn Episode No OBEpisode recorded.
--- NOTE | 2025-02-04 08:41 | ECG_ITS ---
[facility] Test Date: 2025-02-04 Pat Name: Lily Díaz Department: Room: Gender: Female Rn Advanced: : 1950 Requested By: Juan M Haas Order Number: [id number] Reading MD: TIFFANIE MENDOZA Measurements Intervals [place] Rate: 59 P: 67 [place]: 184 QRS: 13 QRSD: 98 T: 50 QT: 500 QTc: 498 Interpretive Statements SINUS BRADYCARDIA WITH OCCASIONAL VENTRICULAR PREMATURE COMPLEXES PROLONGED QT INTERVAL Compared to ECG 12/06/2024 11:00:18 Ventricular premature complex(es) now present Prolonged QT interval now present Sinus rhythm no longer present Electronically Signed On 02-06-2025 23:20:55 CDT by TIFFANIE MENDOZA [id number] [id number]
--- NOTE | 2025-02-04 08:48 | ED_ITS ---
HPI - General Adult 2 General: Chief complaint: Cardiac Arrest/CPR Stated complaint: post code - stroke History of Present Illness: 75-year-old female presents to the emerg ency room via EMS she is post go to having his achieve ROSC in the field after intubation. EMS estimated downtime of approximately 10 minutes. She was intubated in the field given etomidate and rocuronium she was also given fentanyl and ketamine. Family on scene reported the patient complained of severe headache prescribed to where she never had and then went unresponsive. On arrival CPR was in progress EMS intubated the patient with medications as outlined above. There is no report of any focal neurologic deficits prior to her episode of unresponsiveness. On arrival here she is bradycardic but not hypertensive she had a left knee arthroplasty done in November of this year and was briefly on low-dose Eliquis from review of the pharmacy search it does not appear that she is currently taking any Eliquis. Related Data Home Medications ?Medication ?Instructions ?Recorded ?Confirmed acetaminophen 500 mg tablet 500 mg PO BEDTIME PRN Pain 06/07/21 02/04/25 metoprolol succinate 50 mg 50 mg PO QPM 12/13/2402/04 tablet,extended release 24 hr Previous Rx's ?Medication ?Instructions ?Recorded night splint #1 ea 08/04/24 Allergies Allergy/AdvReac Type Severity Reaction Status Date / Time No Known Allergies Allergy Verified 01/11/25 13:01 [facility] ED 2 PFS: Medical History Atrial fibrillation/flutter Arthritis HTN (hypertension) Surgical History S/P hemorrhoidectomy S/P left knee arthroscopy Family History Father Hypertension Aortic aneurysm S/P CABG (coronary artery bypass graft) Mother Mitral valve stenosis Second degree heart block Stroke Grandmother Stroke Grandfather Lung disease Son Diabetes Social History Smoking and tobacco/nicotine status: never used tobacco/nicotine Second hand smoke exposure: No Alcohol intake: current Alcohol intake frequency: few times a week Alcohol type: wine Substance/Drug Use: never Physical Exam 2 HENMT: COMMON NORMALS: normocephalic, atraumatic and hearing grossly normal bilaterally HEAD & SCALP: normocephalic and atraumatic Resp: COMMON NORMALS: clear to auscultation bilaterally AUSCULTATION: clear to auscultation bilaterally Cardio: COMMON NORMALS: regular rate, regular rhythm and No murmurs present (Cardio) RATE: regular rate RHYTHM: regular rhythm GI: COMMON NORMALS: Soft to palpation and No hepatosplenomegaly present A USCULTATION: Yes normoactive bowel sounds PALPATION: Yes Soft to palpation, No Tenderness to palpation present (GI), No Guarding due to palpation present (GI) and Yes No hepatosplenomegaly present Extremity: COMMON NORMALS: normal to inspection, capillary refill normal, no clubbing, cyanosis or edema, no calf tenderness and no pedal edema Course 2 Vital Signs: Vital signs: Vital Signs Pulse Rate 55 L 02/04/25 09:37 Respiratory Rate 16 02/04/25 09:25 Blood Pressure 136/94 02/04/25 09:37 Pulse Oximetry 100 02/04/25 09:37 Fraction of Inspir ed Oxygen 100 02/04/25 09:08 MDM - General Adult Medical Decision Making CT shows acute subarachnoid hemorrhage. Chest x-ray confirms ET tube it did need to be advanced slightly to 24 cm. Blood pressure monitored we briefly has started nicardipine but was not necessary and we were able to stop it. She has been given TXA. We confirmed to pharmacy search she has not on Eliquis. No family was present during the time she was here in the emergency room she is transferred to [facility] emergently as a acute hemorrhagic stroke. Patient is started on Versed and fentanyl for sedation. Medical Records I reviewed the patient's medical records. Lab Data I reviewed the patient's lab results. 02/04/25 09:07 02/04/25 09:07 Radiology Impressions Chest X-Ray 02/04/25 08:21 IMPRESSION: 1. Tip of the new ETT is 4.5 cm above the medina. 2. New mild, diffuse bilateral pulmonary edema and/or pneumonitis. Head CT 02/04/25 08:23 IMPRESSION: 1. Extensive posterior fossa, subarachnoid and intraparenchymal and subdural hemorrhage. Intraparenchymal hematoma in the cerebellum with blood products extending along the tentorium. More focal dorsal cerebellar intraparenchymal hematoma measures 2.6 x 2.5 cm. 2. Subdural blood products extending along the falx to the vertex with subarachnoid hemorrhage along the RIGHT suprasellar cistern and sylvian fissure. 3. Developing moderate obstructive hydrocephalus with bowing of the third ventricle and temporal horns. 4. Partial effacement of the suprasellar cistern with early uncal herniation. Effacement of the ambient cisterns and interpeduncular cistern. Effacement of the fourth ventricle with crowding at the foramen magnum with developing tonsillar herniation. 5. Mass effect on the midbrain with effacement of prepontine cistern. Notified Juan M Rabago DO at 02/04/2025 8:58 AM. Laboratory Results WBC 14.91 10^3/uL (3.29-11.43) H 02/04/25 09:07 RBC 4.35 10^6/uL (3.85-5.65) 02/04/25 09:07 Hgb 12.40 g/dL (11.27-16.99) 02/04/25 09:07 Hct 38.9 % (36-47) 02/04/25 09:07 MCV 89.4 fl (85-98) 02/04/25 09:07 MCH 28.5 pg (27-33) 02/04/25 09:07 MCHC 31.9 g/dL (30-55) 02/04/25 09:07 RDW 12.9 % (12.1-15.1) 02/04/25 09:07 Plt Count 290 10^3/cmm (157-399) 02/04/25 09:07 MPV 8.8 fL (7.4-10.4) 02/04/25 09:07 Neut % (Auto) 83.1 % 02/04/25 09:07 Lymph % (Auto) 10.5 % 02/04/25 09:07 Garden % (Auto) 4.6 % 02/04/25 09:07 Eos % (Auto) 0.3 % 02/04/25 09:07 Baso % (Auto) 0.3 % 02/04/25 09:07 Neut # (Auto) 12.39 10^3/uL (1.8-7.7) H 02/04/25 09:07 Lymph # (Auto) 1.6 10^3/uL (0.8-4.8) 02/04/25 09:07 Garden # (Auto) 0.7 10^3/uL (0.2-0.9) 02/04/25 09:07 Eos # (Auto) 0.1 10^3/uL (0.0-0.8) 02/04/25 09:07 Baso # (Auto) 0.0 10^3/uL (0.0-0.1) 02/04/25 09:07 Nucleated RBC % (auto) 0 % 02/04/25 09:07 Nucleated RBCs # 0.0 /100WBC 02/04/25 09:07 PT 13.10 SECONDS (12.1-14.9) 02/04/25 09:07 INR 0.92 (0.8-1.2) 02/04/25 09:07 APTT 25.6 SECONDS (23.9-36.7) 02/04/25 09:07 Specimen Type Arterial 02/04/25 08:35 Sample Site Brachial, right 02/04/25 08:35 ABG pH 7.28 (7.35-7.45) L 02/04/25 08:35 ABG pCO2 51.3 mmHg (35-45) H 02/04/25 08:35 ABG pO2 129.0 mmHg (80.0-100.0) H 02/04/25 08:35 ABG HCO3 23.9 mmol/L (22-26) 02/04/25 08:35 ABG O2 Saturation 98.7 02/04/25 08:35 ABG Base Excess -3.3 mmol/L (-2.0-2.0) L 02/04/25 08:35 Kristian Test N/a 02/04/25 08:35 A-a O2 Gradient Not Reportable 02/04/25 08:35 Hematocrit 37.9 % (37-47) 02/04/25 08:35 Hgb O2 Saturation 96.8 % (95-100) 02/04/25 08:35 Carboxyhemoglobin 0.8 %THgb (0.4-20.1) 02/04/25 08:35 Methemoglobin 1.2 % (0.4-1.5) 02/04/25 08:35 Total Hemoglobin 12.4 g/dL (12-16) 02/04/25 08:35 Sodium 140.0 mmol/L (131-143) 02/04/25 08:35 Potassium 3.5 mmol/L (3.5-5.0) 02/04/25 08:35 Glucose 254.0 mg/dL (70-115) H 02/04/25 08:35 Ionized Calcium 1.1 mmol/L (1.1-1.4) 02/04/25 08:35 O2 Delivery Device Ambu 02/04/25 08:35 O2 Liters/Min 10.0 % 02/04/25 08:35 Home Companion ID Broma 02/04/25 08:35 Sodium 138 mmol/L (136-145) 02/04/25 09:07 Potassium 4.0 mmol/L (3.5-5.1) 02/04/25 09:07 Chloride 103 mmol/L (98-107) 02/04/25 09:07 Carbon Dioxide 23 mmol/L (22-29) 02/04/25 09:07 Anion Gap 16.0 (5-19) 02/04/25 09:07 BUN 12 mg/dL (8-23) 02/04/25 09:07 Creatinine 0.7 mg/dL (0.5-0.9) 02/04/25 09:07 GFR Calculation Not Reportable 02/04/25 09:07 Glucose 258 mg/dL (65-115) H 02/04/25 09:07 Calculated Osmolality 295 mOsm/kg (285-295) 02/04/25 09:07 Calcium 8.4 mg/dL (8.5-10.5) L 02/04/25 09:07 Total Bilirubin 0.5 mg/dL (0.15-1.2) 02/04/25 09:07 AST 36 U/L (0-32) H 02/04/25 09:07 ALT 28 U/L (0-33) 02/04/25 09:07 Alkaline Phosphatase 68 U/L (35-105) 02/04/25 09:07 Troponin T Baseline 19 ng/L (0-10) H 02/04/25 09:07 Total Protein 6.0 g/dL (6.6-8.7) L 02/04/25 09:07 Albumin 4.0 g/dL (3.5-5.2) 02/04/25 09:07 Globulin 2.0 g/dL (1.3-4.6) 02/04/25 09:07 Urine Color Yellow (Yellow) 02/04/25 09:07 Urine Appearance Clear (CLEAR) 02/04/25 09:07 Urine pH 6.5 (5-7) 02/04/25 09:07 Ur Specific [place] 1.011 (1.005-1.030) 02/04/25 09:07 Urine Protein Trace (Negative) A 02/04/25 09:07 Urine Glucose (UA) 2+ (Normal) H 02/04/25 09:07 Urine Ketones Negative (Negative) 02/04/25 09:07 Urine Blood Negative (Negative) 02/04/25 09:07 Urine Nitrate Negative (Negative) 02/04/25 09:07 Urine Bilirubin Negative (Negative) 02/04/25 09:07 Urine Urobilinogen 0.2 mg/dL (Negative) 02/04/25 09:07 Ur Leukocyte Esterase Negative (Negative) 02/04/25 09:07 Urine RBC 0-4 /hpf (0-2) H 02/04/25 09:07 Urine WBC 0-4 /hpf (0-5) H 02/04/25 09:07 Ur Squamous Epith Cells 0-4 /hpf (0-5) H 02/04/25 09:07 Amorphous Sediment Not Reportable 02/04/25 09:07 Urine Bacteria Trace /hpf (NONE) 02/04/25 09:07 Urine Opiates Screen Negative ng/mL (Negative) 02/04/25 09:07 Ur Barbiturates Screen Negative ng/mL (Negative) 02/04/25 09:07 Ur Phencyclidine Scrn Negative ng/mL (Negative) 02/04/25 09:07 Ur Amphetamines Screen Negative ng/mL (Negative) 02/04/25 09:07 U Benzodiazepines Scrn Negative ng/mL (Negative) 02/04/25 09:07 Urine Cocaine Screen Negative ng/mL (Negative) 02/04/25 09:07 U Marijuana (THC) Screen Negative ng/mL (Negative) 02/04/25 09:07 All radiology interpretation(s) finalized by discharge EKG Data EKG 1: I personally reviewed and interpreted this EKG as follows: EKG interpretation date: 02/04/25 Interpretation: EKG 02/04/2025 8:41 AM sinus bradycardia nonspecific ST changes prolonged QT Computer generated interpretation: Chest X-Ray 02/04/25 08:21 IMPRESSION: 1. Tip of the new ETT is 4.5 cm above the medina. 2. New mild, diffuse bilateral pulmonary edema and/or pneumonitis. Head CT 02/04/25 08:23 IMPRESSION: 1. Extensive posterior fossa, subarachnoid and intraparenchymal and subdural hemorrhage. Intraparenchymal hematoma in the cerebellum with blood products extending along the tentorium. More focal dorsal cerebellar intraparenchymal hematoma measures 2.6 x 2.5 cm. 2. Subdural blood products extending along the falx to the vertex with subarachnoid hemorrhage along the RIGHT suprasellar cistern and sylvian fissure. 3. Developing moderate obstructive hydrocephalus with bowing of the third ventricle and temporal horns. 4. Partial effacement of the suprasellar cistern with early uncal herniation. Effacement of the ambient cisterns and interpeduncular cistern. Effacement of the fourth ventricle with crowding at the foramen magnum with developing tonsillar herniation. 5. Mass effect on the midbrain with effacement of prepontine cistern. Notified Juan M Rabago DO at 02/04/2025 8:58 AM. Critical Care Time 2 Critical Care Time: Attestation: The high probability of a clinically significant, sudden or life threatening deterioration of the patient's cardiovascular respiratory neurologic system(s) required my full and direct attention, intervention and personal management. The critical care time is as shown. This time is in addition to time spent performing any reported procedures but includes the following: [x] Data and vital sign review and interpretation [x] Patient assessment, examination and intervention [x] Documentation [x] Medication orders and management Discharge Plan Discharge Patient Disposition: Transfer to ED Clinical Impression: Hemorrhagic stroke, HTN (hypertension), Atrial fibrillation/flutter, Cardiac arrest Condition: Stable Prescriptions: No Action (DME) night splint See Rx Instructions .Route .MEDSUPPLY Qty: 1 0RF Rx Instructions: As directed acetaminophen 500 mg Tablet 500 mg PO BEDTIME PRN (Reason: Pain) metoprolol succinate 50 mg tablet extended release 24 hr 50 mg PO QPM Referrals: Bassam Nash MD [Primary Care Provider, Family Practice] Print Language: Rwandan Coding Level of Care Code ED 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
[2025-02-04] MEDS: tranexamic acid 1,000 MG/100 ML PREMIX 600 MG IV (09:00)
--- NOTE | 2025-02-04 09:00 | PC.NURSE ---
ZOLL PADS PLACED ON PATIENT ON ARRIVAL TO ED
[2025-02-04 09:08] VITALS: RESP 17
[2025-02-04 09:12] VITALS: BP 156/88; PULSE 52; RESP 18; O2SAT 100
[2025-02-04 09:15] VITALS: PULSE 59; RESP 15; O2SAT 100
[2025-02-04 09:20] VITALS: BP 119/72; PULSE 44; RESP 16; O2SAT 100
--- NOTE | 2025-02-04 09:20 | PC.NURSE ---
per verbal order of Dr. Rabago to have systolic pressure goal of </=140.
[2025-02-04 09:21] LABS: Glucose Urine UA 2+ (Normal); Nitrate Urine Negative (Negative); Specific Gravity, Urine 1.011 (1.005-1.030)
[2025-02-04] MEDS: nicardipine 20 MG/200 ML PREMIX 50 MG IV (09:22)
[2025-02-04] MEDS: midazolam hcl 100 MG/100 ML BAG IV (09:23)
[2025-02-04] MEDS: fentaNYL 1,000 MCG/100 ML BAG 2.5 MCG IV (09:23)
[2025-02-04 09:25] VITALS: PULSE 51; RESP 16; O2SAT 100
--- NOTE | 2025-02-04 09:25 | ECG_ITS ---
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 [employer]: : 1950 Requested By: Juan M Haas Order Number: [id number] Reading MD: TIFFANIE MENDOZA Measurements Intervals [place] Rate: 54 P: 72 [place]: 181 QRS: 12 QRSD: 97 T: 65 QT: 448 QTc: 426 Interpretive Statements SINUS BRADYCARDIA NONSPECIFIC T-WAVE ABNORMALITY Compared to ECG 02/04/2025 08:41:10 T-wave abnormality now present Ventricular premature complex(es) no longer present Prolonged QT interval no longer present Electronically Signed On 02-06-2025 23:20:07 CDT by TIFFANIE MENDOZA [id number] [id number]
--- NOTE | 2025-02-04 09:26 | PC.NURSE ---
per verbal order of Dr. Rabago to pause NiCardipine, b/p currently 119/72
[2025-02-04 09:27] LABS: Hematocrit 38.9 % (36-47); Hemoglobin 12.40 g/dL (11.27-16.99); Mean Corpuscular HGB Conc 31.9 g/dL (30-55); Mean Corpuscular Hemoglobin 28.5 pg (27-33); Mean Corpuscular Volume 89.4 fl (85-98); Nucleated Red Blood Cells % 0 %; PCP Screen Urine Negative (Negative); Platelet Count 290 10^3/cmm (157-399); Red Blood Count 4.35 10^6/uL (3.85-5.65); White Blood Count 14.91 10^3/uL (3.29-11.43)
--- NOTE | 2025-02-04 09:34 | PC.NURSE ---
pt report given to [facility] @1346; sent full bag of Fentanyl gtt, Versed gtt, NiCardipine gtt. NiCardipine paused at time of transfer. gtt titration protocols sent with EMS crew. x3 pumps sent with EMS.
--- NOTE | 2025-02-04 09:35 | PC.NURSE ---
report called to [facility] by ED charge. Report number
[2025-02-04 09:36] LABS: INR 0.92 (0.8-1.2); Partial Thromboplastin Time 25.6 SECONDS (23.9-36.7); Prothrombin Time 13.10 SECONDS (12.1-14.9)
[2025-02-04 09:37] VITALS: BP 136/94; PULSE 55; O2SAT 100
[2025-02-04 09:37] LABS: Add Urine Microscopic? YES; UA Manual Slide Review YES
[2025-02-04 09:39] LABS: Troponin(5th) Baseline 19 ng/L (0-10)
--- NOTE | 2025-02-04 09:40 | PC.NURSE ---
right before pt departure, b/p went from 119 systolic to 134/94; per Dr. Rabago to start NiCardipine at 2.5mg/hr for transport.
[2025-02-04 09:42] LABS: Alanine Aminotransferase 28 U/L (0-33); Albumin Level 4.0 g/dL (3.5-5.2); Alkaline Phosphatase 68 U/L (35-105); Aspartate Amino Transferase 36 U/L (0-32); Blood Urea Nitrogen 12 mg/dL (8-23); Calcium 8.4 mg/dL (8.5-10.5); Carbon Dioxide 23 mmol/L (22-29); Chloride 103 mmol/L (98-107); Creatinine Clr Calc Pharmacy 68.7244; Globulin 2.0 g/dL (1.3-4.6); Glucose 258 mg/dL (65-115); Osmolality Calculated 295 mOsm/kg (285-295); Sodium 138 mmol/L (136-145); Total Protein 6.0 g/dL (6.6-8.7)
[2025-02-04 09:49] LABS: Anion Gap 16.0 (5-19); Potassium 4.0 mmol/L (3.5-5.1)
[2025-02-04 12:53] LABS: ABG PCO2 51.3 mmHg (35-45); ABG PH Result 7.28 (7.35-7.45); Arterial Blood Gas Hematocrit 37.9 % (37-47); Blood Gas LPM 10.0 %; Blood Gas Operator Identificat BROMA; Blood Gas Sample Site Brachial, right; Blood Gas Sample Type Arterial; Carboxyhemoglobin 0.8 %THgb (0.4-20.1); Glucose Level-ABG 254.0 mg/dL (70-115); HCO3 ABG 23.9 mmol/L (22-26); Ionized Calcium Level - ABG 1.1 mmol/L (1.1-1.4); Methemoglobin 1.2 % (0.4-1.5); Oxygen Saturation ABG 98.7; PO2 ABG 129.0 mmHg (80.0-100.0); Potassium Level - ABG 3.5 mmol/L (3.5-5.0); Sodium Level - ABG 140.0 mmol/L (131-143)
== END 2025-02-04 09:41 ==
PROVIDERS: Emergency Provider Family Medicine; PCP Family Medicine
DX: S06.5X9A Traumatic subdural hemorrhage with loss of consciousness of unspecified duration, initial encounter (principal); S06.6X9A Traumatic subarachnoid hemorrhage with loss of consciousness of unspecified duration, initial encounter; I10 Essential (primary) hypertension; I48.91 Unspecified atrial fibrillation; I46.9 Cardiac arrest, cause unspecified; X58.XXXA Exposure to other specified factors, initial encounter
CPT/HCPCS: 36415; 36600; 51702; 70450; 71045; 80051; 80053; 80306; 81001; 82330; 82805; 84484; 85025; 85610; 85730; 87070; 87205; 93005; 94002; 94799; 96365; 96375; 99285; 99291; J2250; J2404; J3010; J9999